=== PATIENT | male | born 1990 | race Caucasian/White ===

== ENCOUNTER 2017-05-20 21:32 | Emergency (ER) | payer SELFPAY ==
[2017-05-20] MEDS ORDERED: ONDANSETRON 4 MG (ODT) TAB ONE (22:36)
--- NOTE | 2017-05-20 23:34 | EDPHYS ---
Physician Documentation [facility] Name: Gurwinder Garner Age: 26 yrs Sex: Male : 1990 Arrival Date: 05/20/2017 Time: 21:36 Bed 17 Private MD: ED Physician Addy Elizondo HPI: 05/20 22:15 This 26 yrs old Male presents to ER via Ambulatory with complaints of Flu cp Symptoms. 22:15 The patient presents to the emergency department with nausea, that is mild, vomiting, 4 cp times today, abdominal pain, of the right upper quadrant and left lower quadrant. Onset: The symptoms/episode began/occurred today. Possible causes: unknown. Associated signs and symptoms: Pertinent positives: fever, general back pain, Pertinent negatives: constipation, diarrhea, GI bleeding. Severity of symptoms: in the emergency department the symptoms are unchanged despite home interventions. Historical: - Allergies: 21:55 No Known Allergies; aa1 - Home Meds: 21:55 None [Active]; aa1 - PMHx: 21:55 None; aa1 - PSHx: 21:55 None; aa1 - Immunization history:: Flu vaccine is not up to date. - Social history:: Smoking status: Patient/guardian denies using tobacco. ROS: 22:20 Constitutional: Positive for body aches, Negative for chills, fever, poor PO intake. cp 22:20 Eyes: Negative for injury, pain, redness, and discharge. cp 22:20 ENT: Negative for drainage from ear(s), ear pain, sore throat, difficulty swallowing, difficulty handling secretions. 22:20 Cardiovascular: Negative for chest pain, edema, palpitations. 22:20 Respiratory: Negative for cough, shortness of breath, wheezing. 22:20 Abdomen/GI: Positive for abdominal pain, nausea, vomiting, Negative for diarrhea, constipation, black/tarry stool, rectal bleeding. 22:20 Back: Positive for generalized pain, Negative for injury or acute deformity, decreased range of motion. 22:20 : Negative for urinary symptoms, testicular pain 22:20 Skin: Negative for cellulitis, rash. 22:20 Neuro: Negative for altered mental status, dizziness, headache, numbness, weakness. 22:20 All other systems are negative. Exam: 22:25 Constitutional: The patient appears in no acute distress, alert, awake, non-toxic, well cp developed, well nourished. 22:25 Head/Face: Normocephalic, atraumatic. cp 22:25 Eyes: Periorbital structures: appear normal, Pupils: equal, round, and reactive to cp light and accomodation, Extraocular movements: intact throughout, Conjunctiva: normal, no exudate, no injection, Sclera: no appreciated abnormality, Lids and lashes: appear normal, bilaterally. 22:25 ENT: External ear(s): are unremarkable, Ear canal(s): are normal, clear, TM's: dullness, bilaterally, Nose: nasal congestion, scant rhinorrhea, Mouth: Lips: moist, Oral mucosa: moist, Posterior pharynx: is normal, airway is patent, no erythema, no exudate, Voice: is normal. 22:25 Neck: ROM/movement: is normal, is supple, without pain, no range of motions limitations, no meningismus, no nuchal rigidity, Lymph nodes: no appreciated lymphadenopathy. 22:25 Chest/axilla: Inspection: normal, Palpation: is normal, no crepitus, no tenderness. 22:25 Cardiovascular: Rate: tachycardic, Rhythm: regular. 22:25 Respiratory: the patient does not display signs of respiratory distress, Respirations: normal, no use of accessory muscles, no retractions, no splinting, no tachypnea, labored breathing, is not present, Breath sounds: are clear throughout, no decreased breath sounds, no stridor, no wheezing. 22:25 Abdomen/GI: Inspection: abdomen appears normal, Bowel sounds: active, all quadrants, Palpation: soft, in all quadrants, mild abdominal tenderness, in the right upper quadrant and left lower quadrant, rebound tenderness, is not appreciated, voluntary guarding, is not appreciated, involuntary guarding, is not appreciated. 22:25 Back: pain, that is mild, ROM is normal, CVA tenderness, is absent. 22:25 Skin: cellulitis, is not appreciated, no rash present. 22:25 Neuro: Orientation: to person, place \T\ time. Mentation: is normal, Cerebellar function: is grossly normal, Motor: moves all fours, strength is normal, Sensation: no obvious gross deficits. Vital Signs: 21:42 BP 148 / 99; Pulse 114; Resp 18; Temp 100.1(O); Pulse Ox 98% on R/A; Weight 83.91 kg; aa1 Height 5 ft. 8 in. (172.72 cm); Pain 9/10; 22:39 BP 108 / 81; Pulse 109; Resp 17 S; Pulse Ox 99% on R/A; Pain 9/10; jd3 23:59 BP 137 / 92; Pulse 102; Resp 17 S; Pulse Ox 97% on R/A; jd3 21:42 Body Mass Index 28.13 (83.91 kg, 172.72 cm) aa1 MDM: 21:44 Patient medically screened. cp 22:30 Differential diagnosis: gastritis, cholecystitis, pancreatitis, appendicitis, viral cp gastroenteritis, gastroenteritis, UTI, influenza. 23:32 Data reviewed: vital signs, nurses notes, lab test result(s). cp 23:32 Counseling: I had a detailed discussion with the patient and/or guardian regarding: the cp historical points, exam findings, and any diagnostic results supporting the discharge/admit diagnosis, lab results, to return to the emergency department if symptoms worsen or persist or if there are any questions or concerns that arise at home. Response to treatment: the patient's symptoms have mildly improved after treatment, VSS. No episodes of vomiting observed in ED and patient tolerating po. Will discharge to home for continued monitoring. 05/20 22:10 Order name: Influenza Screen (a \T\ B); Complete Time: 23:14 cp 05/20 23:14 Interpretation: Reviewed. cp 05/20 23:14 Order name: PO challenge; Complete Time: 23:41 cp Administered Medications: 22:23 Drug: Zofran 4 mg Route: PO; jd3 23:47 Follow up: Response: No adverse reaction jd3 23:47 Drug: Ibuprofen 800 mg Route: PO; jd3 23:58 Follow up: Response: No adverse reaction jd3 Disposition: 05/20/17 23:34 Discharged to Home. Impression: Nausea and vomiting. - Condition is Stable. - Discharge Instructions: Nausea and Vomiting. - Prescriptions for Zofran 4 mg Oral Tablet - take 1 tablet by ORAL route every 12 hours As needed; 20 tablet. - Medication Reconciliation Form, Thank You Letter, Antibiotic Education, Prescription Opioid Use form. - Follow up: Private Physician; When: 1 - 2 days; Reason: Recheck today's complaints. - Problem is new. - Symptoms have improved. Addendum: 05/23/2017 07:16 Co-signature as Attending Physician, Addy Elizondo MD I agree with the assessment and c campuzano plan of care. Signatures: Dispatcher [employer] Kemi Urbina, RN RN aa1 Addy Elizondo MD MD cha Page, Corey, PA PA cp Davies, Jonathon RN RN jd3
--- NOTE | 2017-05-20 23:34 | ER ---
Nurse's Notes [facility] Name: Gurwinder Garner Age: 26 yrs Sex: Male : 1990 Arrival Date: 05/20/2017 Time: 21:36 Bed 17 Private MD: Diagnosis: Nausea and vomiting Presentation: 05/20 21:42 Presenting complaint: Patient states: generalized back pain and body aches since last aa1 night and began vomiting today. Transition of care: patient was not received from another setting of care. Onset of symptoms was May 19, 2017. Care prior to arrival: None. 21:42 Method Of Arrival: Ambulatory aa1 21:42 Acuity: ALIRIO 3 aa1 Triage Assessment: 21:42 General: Appears in no apparent distress. comfortable, Behavior is calm, cooperative, aa1 appropriate for age. Historical: - Allergies: 21:55 No Known Allergies; aa1 - Home Meds: 21:55 None [Active]; aa1 - PMHx: 21:55 None; aa1 - PSHx: 21:55 None; aa1 - Immunization history:: Flu vaccine is not up to date. - Social history:: Smoking status: Patient/guardian denies using tobacco. Screenin:40 Abuse screen: Denies threats or abuse. Nutritional screening: No deficits noted. jd3 Tuberculosis screening: No symptoms or risk factors identified. Fall Risk None identified. Assessment: 21:50 General: Appears in no apparent distress. uncomfortable, Behavior is calm, cooperative, jd3 appropriate for age. Pain: Complains of pain in back Quality of pain is described as aching, Pain began 1 day ago. Neuro: Level of Consciousness is awake, alert, obeys commands, Oriented to person, place, time, situation. Cardiovascular: Heart tones S1 S2 present Capillary refill < 3 seconds Patient's skin is warm and dry. Respiratory: Airway is patent Respiratory effort is even, unlabored, Respiratory pattern is regular, symmetrical, Breath sounds are clear bilaterally. GI: Abdomen is round Bowel sounds present X 4 quads. Abd is soft and non tender X 4 quads. : No signs and/or symptoms were reported regarding the genitourinary system. EENT: No signs and/or symptoms were reported regarding the EENT system. Derm: Skin is intact, Skin is dry, Skin is normal, Skin temperature is warm. Musculoskeletal: Circulation, motion, and sensation intact. Range of motion: intact in all extremities. 22:40 Reassessment: Patient appears in no apparent distress at this time. No changes from jd3 previously documented assessment. Patient and/or family updated on plan of care and expected duration. Pain level reassessed. Patient is alert, oriented x 3, equal unlabored respirations, skin warm/dry/pink. Vital Signs: 21:42 BP 148 / 99; Pulse 114; Resp 18; Temp 100.1(O); Pulse Ox 98% on R/A; Weight 83.91 kg; aa1 Height 5 ft. 8 in. (172.72 cm); Pain 9/10; 22:39 BP 108 / 81; Pulse 109; Resp 17 S; Pulse Ox 99% on R/A; Pain 9/10; jd3 23:59 BP 137 / 92; Pulse 102; Resp 17 S; Pulse Ox 97% on R/A; jd3 21:42 Body Mass Index 28.13 (83.91 kg, 172.72 cm) aa1 ED Course: 21:36 Patient arrived in ED. al2 21:42 Arm band placed on right wrist. Patient placed in an exam room, on a stretcher. aa1 21:43 Addy Mac PA is PHCP. cp 21:43 Addy Elizondo MD is Attending Physician. cp 21:44 Yeison Gay, BRAULIO is Primary Nurse. jd3 21:53 Triage completed. aa1 23:57 Patient has correct armband on for positive identification. jd3 23:57 No provider procedures requiring assistance completed. Patient did not have IV access jd3 during this emergency room visit. Administered Medications: 22:23 Drug: Zofran 4 mg Route: PO; jd3 23:47 Follow up: Response: No adverse reaction jd3 23:47 Drug: Ibuprofen 800 mg Route: PO; jd3 23:58 Follow up: Response: No adverse reaction jd3 Outcome: 23:34 Discharge ordered by . cp 23:57 Discharged to home ambulatory, with family. jd3 23:57 Condition: stable 23:57 Discharge instructions given to patient, family, Instructed on discharge instructions, follow up and referral plans. medication usage, Demonstrated understanding of instructions, follow-up care, medications, Prescriptions given X 1. 23:59 Patient left the ED. jd3 Signatures: Kemi Sellers RN RN aa1 Addy Mac PA PA cp Davies, Jonathon, RN RN jd3 Elda Rahman2 Corrections: (The following items were deleted from the chart) 23:58 23:57 Discharge instructions given to patient, family, Instructed on discharge jd3 instructions, follow up and referral plans. medication usage, Demonstrated understanding of instructions, follow-up care, medications, Prescriptions given X 2, jd3
[2017-05-21] MEDS ORDERED: IBUPROFEN 400 MG TAB ONE (00:03)
== END 2017-05-20 23:59 | disposition home or self-care (01) ==
LOC: ER 21:32
DX: R11.2 Nausea with vomiting, unspecified (principal); R50.9 Fever, unspecified
CPT/HCPCS: 87804; 99283

== ENCOUNTER 2018-04-23 21:11 | Emergency (ER) | payer SELFPAY ==
--- NOTE | 2018-04-24 00:30 | ER ---
Nurse's Notes [facility] Name: Gurwinder Garner Age: 27 yrs Sex: Male : 1990 Arrival Date: 04/23/2018 Time: 21:16 Bed 23 Private MD: Diagnosis: Cough;Vomiting;Diarrhea, unspecified Presentation: 04/23 21:25 Presenting complaint: Patient states: Chills, body aches, cough, vomiting, diarrhea la1 that started on Tuesday. Transition of care: patient was not received from another setting of care. Onset of symptoms was April 23, 2018. Risk Assessment: Do you want to hurt yourself or someone else? Patient reports no desire to harm self or others. Initial Sepsis Screen: Does the patient meet any 2 criteria? No. Patient's initial sepsis screen is negative. Does the patient have a suspected source of infection? No. Patient's initial sepsis screen is negative. Care prior to arrival: None. 21:25 Method Of Arrival: Ambulatory la1 21:25 Acuity: ALIRIO 3 la1 Triage Assessment: 04/24 00:42 General: Behavior is. ca1 Historical: - Allergies: 04/23 21:26 No Known Allergies; la1 - PMHx: 21:26 None; la1 - Immunization history:: Adult Immunizations up to date. - Social history:: Smoking status: Patient/guardian denies using tobacco. - Ebola Screening: : No symptoms or risks identified at this time. Screenin:30 Abuse screen: Denies threats or abuse. Denies injuries from another. Nutritional ca1 screening: No deficits noted. Tuberculosis screening: No symptoms or risk factors identified. Fall Risk None identified. Assessment: 21:30 General: Appears in no apparent distress. uncomfortable, ill. Pain: Complains of pain ca1 in epigastric area Pain currently is 5 out of 10 on a pain scale. Pain began 2-3 days ago. Neuro: Level of Consciousness is awake, alert, obeys commands, Oriented to person, place, time, situation. Cardiovascular: Heart tones S1 S2 present Capillary refill < 3 seconds Patient's skin is warm and dry. Respiratory: Reports cough that is productive, since past week. Airway is patent Respiratory effort is even, unlabored, Respiratory pattern is regular, symmetrical, Breath sounds are coarse bilaterally. in right posterior middle lobe. GI: Abdomen is flat, non-distended, Bowel sounds present X 4 quads. Abd is soft X 4 quads Abdomen is tender to palpation in epigastric area Reports nausea, vomiting. : No signs and/or symptoms were reported regarding the genitourinary system. EENT: Nares with drainage noted Throat is pink Reports nasal congestion. Derm: Skin is intact, is healthy with good turgor, Skin is pink, warm \T\ dry. Musculoskeletal: Circulation, motion, and sensation intact. Capillary refill < 3 seconds. 23:13 Reassessment: Patient appears in no apparent distress at this time. Patient and/or ca1 family updated on plan of care and expected duration. Pain level reassessed. Patient is alert, oriented x 3, equal unlabored respirations, skin warm/dry/pink. 04/24 00:30 Reassessment: Patient appears in no apparent distress at this time. Patient and/or ca1 family updated on plan of care and expected duration. Pain level reassessed. Patient is alert, oriented x 3, equal unlabored respirations, skin warm/dry/pink. Vital Signs: 04/23 21:26 BP 136 / 80; Pulse 98; Resp 18; Temp 99.8; Pulse Ox 100% on R/A; Weight 79.38 kg; la1 Height 5 ft. 8 in. (172.72 cm); 23:13 BP 145 / 91; Pulse 80; Resp 19; Pulse Ox 95% on R/A; ca1 04/24 00:30 BP 135 / 85; Pulse 85; Resp 19; Pulse Ox 100% on R/A; ca1 04/23 21:26 Body Mass Index 26.61 (79.38 kg, 172.72 cm) la1 ED Course: 04/23 21:16 Patient arrived in ED. am2 21:26 Triage completed. la1 21:27 Arm band placed on left wrist. la1 21:30 Patient has correct armband on for positive identification. Bed in low position. Call ca1 light in reach. Side rails up X 1. Pulse ox on. NIBP on. Warm blanket given. 21:32 Addy Mac PA is PHCP. cp 21:32 Addy Elizondo MD is Attending Physician. cp 21:51 Brooke Seth, BRAULIO is Primary Nurse. ca1 22:31 XRAY Chest Pa And Lat (2 Views) In Process Unspecified. EDMS 22:59 Influenza Screen (a \T\ B) Sent. ca1 22:59 Strep Sent. ca1 22:59 Influenza Screen (A Sent. ca1 23:00 Flu Sent. ca1 23:00 Strep Sent. ca1 04/24 00:41 No provider procedures requiring assistance completed. Patient did not have IV access ca1 during this emergency room visit. Administered Medications: No medications were administered Outcome: 00:29 Discharge ordered by . david 00:41 Discharged to home ambulatory. ca1 00:41 Condition: stable 00:41 Discharge instructions given to patient, Instructed on discharge instructions, follow up and referral plans. medication usage, Demonstrated understanding of instructions, follow-up care, medications, Prescriptions given X 2. 00:44 Patient left the ED. ca1 Signatures: Dispatcher [employer] EDMS Mc Casillas, RN RN la1 Addy Mac PA PA cp Moreno, Amanda am2 Brooke Seth RN RN ca1
--- NOTE | 2018-04-24 00:30 | EDPHYS ---
Physician Documentation [facility] Name: Gurwinder Garner Age: 27 yrs Sex: Male : 1990 Arrival Date: 04/23/2018 Time: 21:16 Bed 23 Private MD: ED Physician Addy Elizondo HPI: 04/23 22:05 This 27 yrs old Male presents to ER via Ambulatory with complaints of Flu cp Symptoms, Fever. Historical: - Allergies: 21:26 No Known Allergies; la1 - PMHx: 21:26 None; la1 - Immunization history:: Adult Immunizations up to date. - Social history:: Smoking status: Patient/guardian denies using tobacco. - Ebola Screening: : No symptoms or risks identified at this time. ROS: 22:10 Constitutional: Positive for body aches, chills, Negative for fever, poor PO intake. cp 22:10 Eyes: Negative for injury, pain, redness, and discharge. cp 22:10 ENT: Positive for sore throat, Negative for drainage from ear(s), ear pain, difficulty swallowing, difficulty handling secretions. 22:10 Cardiovascular: Negative for chest pain. 22:10 Respiratory: Positive for cough, Negative for wheezing. 22:10 Abdomen/GI: Positive for nausea, vomiting, and diarrhea, Negative for constipation. 22:10 Skin: Negative for cellulitis, rash. 22:10 Neuro: Negative for altered mental status, headache, weakness. 22:10 All other systems are negative. Exam: 22:20 Constitutional: The patient appears in no acute distress, alert, awake, non-toxic, well cp developed, well nourished. 22:20 Head/Face: Normocephalic, atraumatic. cp 22:20 Eyes: Periorbital structures: appear normal, Conjunctiva: normal, no exudate, no injection, Lids and lashes: appear normal, bilaterally. 22:20 ENT: External ear(s): are unremarkable, Ear canal(s): are normal, clear, TM's: bulging, is not appreciated, bilaterally, dullness, bilaterally, erythema, is not appreciated, bilaterally, Nose: is normal, Mouth: Lips: moist, Oral mucosa: moist, Posterior pharynx: Airway: no evidence of obstruction, patent, Tonsils: with erythema, no enlargement, no exudate, erythema, that is mild, exudate, is not appreciated. 22:20 Neck: ROM/movement: is normal, is supple, without pain, no range of motions limitations, no meningismus, no nuchal rigidity. 22:20 Chest/axilla: Inspection: normal, Palpation: is normal, no crepitus, no tenderness. 22:20 Cardiovascular: Rate: normal, Rhythm: regular. 22:20 Respiratory: the patient does not display signs of respiratory distress, Respirations: normal, no use of accessory muscles, no retractions, no splinting, no tachypnea, labored breathing, is not present, Breath sounds: are clear throughout, no decreased breath sounds, no stridor, no wheezing. 22:20 Abdomen/GI: Inspection: abdomen appears normal, Bowel sounds: active, all quadrants, Palpation: abdomen is soft and non-tender, in all quadrants, rebound tenderness, is not appreciated, voluntary guarding, is not appreciated, involuntary guarding, is not appreciated. 22:20 Skin: cellulitis, is not appreciated, no rash present. Vital Signs: 21:26 BP 136 / 80; Pulse 98; Resp 18; Temp 99.8; Pulse Ox 100% on R/A; Weight 79.38 kg; la1 Height 5 ft. 8 in. (172.72 cm); 23:13 BP 145 / 91; Pulse 80; Resp 19; Pulse Ox 95% on R/A; ca1 04/24 00:30 BP 135 / 85; Pulse 85; Resp 19; Pulse Ox 100% on R/A; ca1 04/23 21:26 Body Mass Index 26.61 (79.38 kg, 172.72 cm) la1 MDM: 04/23 21:32 Patient medically screened. cp / 00:00 Differential diagnosis: bronchitis, pneumonia gastroenteritis, meningitis. cp 00:28 Data reviewed: vital signs, nurses notes, lab test result(s), radiologic studies, plain cp films, and as a result, I will discharge patient. 00:28 Test interpretation: by ED physician or midlevel provider: plain radiologic studies. cp Counseling: I had a detailed discussion with the patient and/or guardian regarding: the historical points, exam findings, and any diagnostic results supporting the discharge/admit diagnosis, lab results, radiology results, to return to the emergency department if symptoms worsen or persist or if there are any questions or concerns that arise at home. 04/23 21:59 Order name: Influenza Screen (a \T\ B) 04/23 21:59 Order name: Strep; Complete Time: 00:21 cp 04/24 00:21 Interpretation: Reviewed. 04/23 21:59 Order name: Influenza Screen (A ; Complete Time: 00:21 EDPR 04/24 00:21 Interpretation: Reviewed. 04/23 21:59 Order name: Flu ca1 04/23 21:59 Order name: Strep ca1 04/24 00:20 Order name: Throat Culture [facility] 04/23 21:59 Order name: XRAY Chest Pa And Lat (2 Views) 04/23 23:04 Order name: PO challenge; Complete Time: 23:11 cp Administered Medications: No medications were administered Disposition: 04/24/18 00:29 Discharged to Home. Impression: Cough, Vomiting, Diarrhea, unspecified. - Condition is Stable. - Discharge Instructions: Food Choices to Help Relieve Diarrhea, Adult, Diarrhea, Adult, Cough, Adult, Vomiting, Adult, Form - Excuse from Work, School, or Physical Activity. - Prescriptions for Zofran 4 mg Oral Tablet - take 1 tablet by ORAL route every 12 hours As needed; 20 tablet. Tessalon Perles 100 mg Oral Capsule - take 1 capsule by ORAL route every 8 hours As needed; 15 capsule. - Medication Reconciliation Form, Thank You Letter, Antibiotic Education, Prescription Opioid Use, Work release form form. - Follow up: Private Physician; When: 2 - 3 days; Reason: Worsening of condition. - Problem is new. - Symptoms have improved. Addendum: 04/26/2018 11:21 Co-signature as Attending Physician, Addy Elizondo MD I agree with the assessment and c campuzano plan of care. Signatures: Dispatcher [employer] [facility] Addy Elizondo MD MD cha Attema, Lee, RN RN la1 Addy Mac PA PA cp Acob, Cheryl RN RN ca1 Corrections: (The following items were deleted from the chart) 04/23 22:01 21:59 Influenza Screen (A ordered. [facility] 04/24 00:44 00:29 04/24/2018 00:29 Discharged to Home. Impression: Cough; Vomiting; Diarrhea, ca1 unspecified. Condition is Stable. Forms are Medication Reconciliation Form, Thank You Letter, Antibiotic Education, Prescription Opioid Use. Follow up: Private Physician; When: 2 - 3 days; Reason: Worsening of condition. Problem is new. Symptoms have improved. cp
--- NOTE | 2018-04-24 07:48 | RAD REPORT ---
EXAM DESCRIPTION: Joe Falk (2 Views)04/23/2018 10:32 pm CLINICAL HISTORY: Cough COMPARISON: None FINDINGS: The lungs appear clear of acute infiltrate. The heart is normal size IMPRESSION: No acute abnormalities displayed
== END 2018-04-24 00:44 | disposition home or self-care (01) ==
LOC: ER 21:11
DX: R05 Cough (principal); R11.10 Vomiting, unspecified; R19.7 Diarrhea, unspecified; R50.9 Fever, unspecified
CPT/HCPCS: 71046; 87070; 87081; 87804; 99284

== ENCOUNTER 2018-04-25 12:55 | Emergency (ER) | payer BC, SELFPAY ==
[2018-04-25 14:01] LABS: Absolute Lymphocytes (CBC) 1.6 K/uL (0.7-4.9); Absolute Monocytes 0.5 K/uL (0.1-1.3); Absolute Neutrophil 3.9 K/uL (1.8-8.0); Basophils % 0.1 % (0-1.3); Eosinophils % 0.9 % (0-4.4); Hematocrit 40.2 % (39.6-49.0); Lymphocytes % 26.5 % (15.3-44.8); MPV 8.9 fL (7.6-11.3); Monocytes % 8.6 % (3.3-12.3); RBC Red Blood Cell Count 4.81 M/uL (4.33-5.43)
[2018-04-25 14:19] LABS: Albumin 3.8 g/dL (3.4-5.0); Bilirubin Direct 0.1 mg/dL (0-0.2); Bilirubin Total 0.3 mg/dL (0.2-1.0); Potassium 3.8 mmol/L (3.5-5.1); Protein, Total 7.7 g/dL (6.4-8.2)
[2018-04-25] MEDS ORDERED: NA CHLORIDE 0.9% 1,000 ML ONE (14:23)
--- NOTE | 2018-04-25 15:40 | ER ---
Nurse's Notes [facility] Name: Gurwinder Garner Age: 27 yrs Sex: Male : 1990 Arrival Date: 04/25/2018 Time: 12:57 Bed 27 Private MD: Diagnosis: Fever presenting with conditions classified elsewhere;Acute upper respiratory infection, unspecified Presentation: 04/25 13:07 Presenting complaint: Patient states: I was seen here Tuesday, I had a tooth pulled 2 ch months ago, I have been on two rounds of antibiotics. I called my Dentist and they said to come in here, the infection is in my blood stream and I need IV antibiotics. I cant eat and dont feel well. I am having diarrhea and body aches. Transition of care: patient was not received from another setting of care. Onset of symptoms was February 2018. Risk Assessment: Do you want to hurt yourself or someone else? Patient reports no desire to harm self or others. Initial Sepsis Screen: Does the patient meet any 2 criteria? No. Patient's initial sepsis screen is negative. Does the patient have a suspected source of infection? No. Patient's initial sepsis screen is negative. Care prior to arrival: None. 13:07 Method Of Arrival: Ambulatory 13:07 Acuity: ALIRIO 4 ch Triage Assessment: 13:09 General: Appears in no apparent distress. comfortable, Behavior is calm, cooperative, ch appropriate for age. Pain: Complains of pain in nose and throat Pain currently is 3 out of 10 on a pain scale. Historical: - Allergies: 13:09 No Known Allergies; ch - Home Meds: 13:09 antibiotics [Active]; ch - PMHx: 13:09 None; - PSHx: 13:09 circumcision; - Immunization history:: Adult Immunizations up to date, Flu vaccine is not up to date. - Social history:: Smoking status: Patient/guardian denies using tobacco, Patient uses alcohol, but reports only rare drinking. Patient/guardian denies using street drugs. - Ebola Screening: : Patient negative for fever greater than or equal to 101.5 degrees Fahrenheit, and additional compatible Ebola Virus Disease symptoms Patient denies exposure to infectious person Patient denies travel to an Ebola-affected area in the 21 days before illness onset No symptoms or risks identified at this time. Screenin:15 Abuse screen: Denies threats or abuse. Denies injuries from another. Nutritional ca1 screening: No deficits noted. Tuberculosis screening: No symptoms or risk factors identified. Fall Risk None identified. Assessment: 13:15 General: Appears in no apparent distress. comfortable, Behavior is calm, cooperative, ca1 appropriate for age. Pain: Complains of pain in neck and nose and throat Pain does not radiate. Pain currently is 3 out of 10 on a pain scale. Pain began 2-3 days ago. Neuro: Level of Consciousness is awake, alert, obeys commands, Oriented to person, place, time, situation. Cardiovascular: Heart tones S1 S2 present Capillary refill < 3 seconds Patient's skin is warm and dry. Respiratory: Reports cough that is productive, Airway is patent Respiratory effort is even, unlabored, Respiratory pattern is regular, symmetrical, Breath sounds are clear bilaterally. GI: No signs and/or symptoms were reported involving the gastrointestinal system. : No signs and/or symptoms were reported regarding the genitourinary system. EENT: Throat is pink Reports nasal congestion. Derm: Skin is intact, is healthy with good turgor, Skin is pink, warm \T\ dry. Musculoskeletal: Circulation, motion, and sensation intact. Capillary refill < 3 seconds. 14:10 Reassessment: Patient appears in no apparent distress at this time. Patient and/or ca1 family updated on plan of care and expected duration. Pain level reassessed. Patient is alert, oriented x 3, equal unlabored respirations, skin warm/dry/pink. 15:05 Reassessment: Patient appears in no apparent distress at this time. Patient and/or ca1 family updated on plan of care and expected duration. Pain level reassessed. Patient is alert, oriented x 3, equal unlabored respirations, skin warm/dry/pink. 15:50 Reassessment: Patient appears in no apparent distress at this time. Patient and/or ca1 family updated on plan of care and expected duration. Pain level reassessed. Patient is alert, oriented x 3, equal unlabored respirations, skin warm/dry/pink. Vital Signs: 13:09 BP 147 / 94; Pulse 89; Resp 16; Temp 99.4; Pulse Ox 99% on R/A; Weight 79.38 kg; Height ch 5 ft. 8 in. (172.72 cm); Pain 3/10; 14:00 BP 104 / 85; Pulse 85; Resp 19; Pulse Ox 99% on R/A; ca1 14:56 BP 114 / 64; Pulse 66; Resp 19; Pulse Ox 96% on R/A; ca1 15:05 BP 108 / 67; Pulse 64; Resp 18; Pulse Ox 96% on R/A; ca1 15:50 BP 110 / 65; Pulse 71; Resp 19; Pulse Ox 100% on R/A; ca1 13:09 Body Mass Index 26.61 (79.38 kg, 172.72 cm) ED Course: 12:57 Patient arrived in ED. as 13:08 Triage completed. 13:09 Arm band placed on left wrist. Patient placed in an exam room, on a stretcher. 13:15 Brooke Seth RN is Primary Nurse. [facility] 13:15 Norman Kennedy MD is Attending Physician. 13:15 Patient has correct armband on for positive identification. Bed in low position. Call ca1 light in reach. Side rails up X 1. Pulse ox on. NIBP on. Pillow given. 13:52 Initial lab(s) drawn, by ut, sent to lab. Inserted saline lock: 20 gauge in right ls4 antecubital area, using aseptic technique. Blood collected. 15:39 Amilcar Gordon DDS is Referral Physician. 15:40 EKG done, by technician terminal and repeater. reviewed by Norman Kenneyd MD. [facility] 16:05 No provider procedures requiring assistance completed. IV discontinued, intact, ca1 bleeding controlled, No redness/swelling at site. Pressure dressing applied. Administered Medications: 14:00 Drug: NS 0.9% 1000 ml Route: IV; Rate: 1 bolus; Site: right antecubital; ca1 15:00 Follow up: IV Status: Completed infusion ca1 Outcome: 15:40 Discharge ordered by . 16:05 Patient left the ED. ca1 16:05 Discharged to home ambulatory. [facility] 16:05 Condition: stable 16:05 Discharge instructions given to patient, Instructed on discharge instructions, follow up and referral plans. Demonstrated understanding of instructions, follow-up care. Signatures: Dior Leal, RN RN Margarita Hernandez Gregory, MD MD Tika Tripathi [facility] Wanda Sousa RN RN 4 Acob, Brooke, RN RN ca1
--- NOTE | 2018-04-25 15:41 | EDPHYS ---
Physician Documentation [facility] Name: Gurwinder Garner Age: 27 yrs Sex: Male : 1990 Arrival Date: 04/25/2018 Time: 12:57 Bed 27 Private MD: ED Physician Norman Kennedy HPI: 04/25 15:32 This 27 yrs old Male presents to ER via Ambulatory with complaints of fever gs uri Mouth Problem. 15:32 Onset: The symptoms/episode began/occurred 1 week(s) ago. Associated signs and gs symptoms: Pertinent positives: chills, cough, diarrhea. Severity of symptoms: At their worst the symptoms were moderate in the emergency department the symptoms are unchanged. The patient has been recently seen at the [facility] Emergency Department, this week. has upper resp flu like symptoms, concerned that may have systemic infection as has been on abx for a few weeks off and on after a tooth extraction . Historical: - Allergies: 13:09 No Known Allergies; ch - Home Meds: 13:09 antibiotics [Active]; ch - PMHx: 13:09 None; ch - PSHx: 13:09 circumcision; ch - Immunization history:: Adult Immunizations up to date, Flu vaccine is not up to date. - Social history:: Smoking status: Patient/guardian denies using tobacco, Patient uses alcohol, but reports only rare drinking. Patient/guardian denies using street drugs. - Ebola Screening: : Patient negative for fever greater than or equal to 101.5 degrees Fahrenheit, and additional compatible Ebola Virus Disease symptoms Patient denies exposure to infectious person Patient denies travel to an Ebola-affected area in the 21 days before illness onset No symptoms or risks identified at this time. ROS: 15:32 All other systems are negative. gs Exam: 15:32 Head/Face: Normocephalic, atraumatic. Eyes: Pupils equal round and reactive to light, gs extra-ocular motions intact. Lids and lashes normal. Conjunctiva and sclera are non-icteric and not injected. Cornea within normal limits. Periorbital areas with no swelling, redness, or edema. Neck: Trachea midline, no thyromegaly or masses palpated, and no cervical lymphadenopathy. Supple, full range of motion without nuchal rigidity, or vertebral point tenderness. No Meningismus. Chest/axilla: Normal chest wall appearance and motion. Nontender with no deformity. No lesions are appreciated. Cardiovascular: Regular rate and rhythm with a normal S1 and S2. No gallops, murmurs, or rubs. Normal PMI, no JVD. No pulse deficits. Respiratory: Lungs have equal breath sounds bilaterally, clear to auscultation and percussion. No rales, rhonchi or wheezes noted. No increased work of breathing, no retractions or nasal flaring. Abdomen/GI: Soft, non-tender, with normal bowel sounds. No distension or tympany. No guarding or rebound. No evidence of tenderness throughout. Back: No spinal tenderness. No costovertebral tenderness. Full range of motion. Skin: Warm, dry with normal turgor. Normal color with no rashes, no lesions, and no evidence of cellulitis. MS/ Extremity: Pulses equal, no cyanosis. Neurovascular intact. Full, normal range of motion. Neuro: Awake and alert, GCS 15, oriented to person, place, time, and situation. Cranial nerves II-XII grossly intact. Motor strength 5/5 in all extremities. Sensory grossly intact. Cerebellar exam normal. Normal gait. 15:32 Constitutional: The patient appears alert, awake. 15:32 ENT: Dental exam: no swelling abscess small tag of gun hanging from extraction site extraction site closed. Vital Signs: 13:09 BP 147 / 94; Pulse 89; Resp 16; Temp 99.4; Pulse Ox 99% on R/A; Weight 79.38 kg; Height ch 5 ft. 8 in. (172.72 cm); Pain 3/10; 14:00 BP 104 / 85; Pulse 85; Resp 19; Pulse Ox 99% on R/A; ca1 14:56 BP 114 / 64; Pulse 66; Resp 19; Pulse Ox 96% on R/A; ca1 15:05 BP 108 / 67; Pulse 64; Resp 18; Pulse Ox 96% on R/A; ca1 15:50 BP 110 / 65; Pulse 71; Resp 19; Pulse Ox 100% on R/A; ca1 13:09 Body Mass Index 26.61 (79.38 kg, 172.72 cm) [facility]: 13:29 Patient medically screened. 15:32 Differential diagnosis: viral Infection, bacterial infection, URI. Data reviewed: vital gs signs, nurses notes, old medical records, lab test result(s), EKG, radiologic studies. Counseling: I had a detailed discussion with the patient and/or guardian regarding: the historical points, exam findings, and any diagnostic results supporting the discharge/admit diagnosis, lab results, radiology results, the need for outpatient follow up, an oral maxilofacial specialist. Response to treatment: the patient's symptoms have markedly improved after treatment, and as a result, I will discharge patient. 04/25 13:31 Order name: Basic Metabolic Panel; Complete Time: 15:08 04/25 13:31 Order name: Blood Culture Adult (2) 04/25 13:31 Order name: CBC with Diff; Complete Time: 14:14 04/25 13:31 Order name: Lactate; Complete Time: 15:08 04/25 13:31 Order name: LFT's; Complete Time: 15:08 04/25 13:31 Order name: Procalcitonin; Complete Time: 15:32 04/25 13:31 Order name: Accucheck; Complete Time: 14:30 04/25 13:31 Order name: Cardiac monitoring; Complete Time: 13:51 04/25 13:31 Order name: EKG - Nurse/Tech; Complete Time: 14:46 04/25 13:31 Order name: IV Saline Lock - Large Bore; Complete Time: 13:52 04/25 13:31 Order name: Labs collected and sent; Complete Time: 13:52 04/25 14:31 Order name: Glucose, Ancillary Testing [facility] 04/25 14:59 Order name: Urine Dipstick--Ancillary (enter results) 04/25 13:31 Order name: O2 Per Protocol; Complete Time: 14:11 04/25 13:31 Order name: O2 Sat Monitoring; Complete Time: 14:11 04/25 13:31 Order name: Urine Dipstick-Ancillary (obtain specimen); Complete Time: 14:48 Administered Medications: 14:00 Drug: NS 0.9% 1000 ml Route: IV; Rate: 1 bolus; Site: right antecubital; ca1 15:00 Follow up: IV Status: Completed infusion ca1 Disposition: 04/25/18 15:40 Discharged to Home. Impression: Fever presenting with conditions classified elsewhere, Acute upper respiratory infection, unspecified. - Condition is Stable. - Discharge Instructions: Upper Respiratory Infection, Adult. - Medication Reconciliation Form, Thank You Letter, Antibiotic Education, Prescription Opioid Use form. - Follow up: Amilcar Gordon DDS; When: 2 - 3 days; Reason: Re-evaluation by your physician. Signatures: Dispatcher [employer] EDDior Wilson RN RN ch Norman Kennedy MD MD gs Acob, BRAULIO Cox RN ca1 Corrections: (The following items were deleted from the chart) 16:05 15:40 04/25/2018 15:40 Discharged to Home. Impression: Fever presenting with conditions ca1 classified elsewhere; Acute upper respiratory infection, unspecified. Condition is Stable. Forms are Medication Reconciliation Form, Thank You Letter, Antibiotic Education, Prescription Opioid Use. Follow up: Amilcar Gordon; When: 2 - 3 days; Reason: Re-evaluation by your physician. gs
[2018-04-25 19:49] LABS: Urine Blood NEGATIVE (NEG); Urine Glucose NEGATIVE (NEG); Urine Protein TRACE (NEG)
--- NOTE | 2018-04-26 06:06 | EKG ---
Test Date: 2018-04-25 Test Time: 14:38:26 Epic Interface Analyst: MARKELL MEASUREMENT RESULTS: Intervals: Rate: 70 CA: 96 QRSD: 112 QT: 390 QTc: 421 [place]: P: 24 CA: 96 QRS: 7 T: 29 INTERPRETIVE STATEMENTS: Normal sinus rhythm Wsncd-[id number]-Hgsau Abnormal ECG No previous ECG available for comparison Electronically Signed On 04-26-18 06:04:27 TE[employer]ER [employer]ESS [employer]IP[employer] by Kody Tavarez
== END 2018-04-25 16:05 | disposition home or self-care (01) ==
LOC: ER 12:55
DX: J06.9 Acute upper respiratory infection, unspecified (principal)
CPT/HCPCS: 36415; 80048; 80076; 81003; 82962; 83605; 84145; 85025; 87040; 93005; 96360; 99284; J7030

== ENCOUNTER 2019-05-07 11:47 | Emergency (ER) | payer BC, SELFPAY ==
--- NOTE | 2019-05-07 13:25 | ER ---
Nurse's Notes [facility] Name: Gurwinder Garner Age: 28 yrs Sex: Male : 1990 Arrival Date: 05/07/2019 Time: 11:49 Bed 25 Private MD: Diagnosis: Acute bronchitis;Diarrhea, unspecified Presentation: 05/06 12:25 Chief complaint: Patient states: vomiting, diarrhea, fever, shortness of breath since dw yesterday afternoon. Coronavirus screen: The patient has NOT traveled to a country currently being monitored by the [facility] within the last 14 days. The patient has NOT had contact with any known and/or suspected case of coronavirus. Ebola Screen: Patient negative for fever greater than or equal to 101.5 degrees Fahrenheit, and additional compatible Ebola Virus Disease symptoms Patient denies exposure to infectious person. Patient denies travel to an Ebola-affected area in the 21 days before illness onset. No symptoms or risks identified at this time. 12:25 Method Of Arrival: Ambulatory dw 12:28 Initial Sepsis Screen: Does the patient meet any 2 criteria? No. Patient's initial dw sepsis screen is negative. Does the patient have a suspected source of infection? No. Patient's initial sepsis screen is negative. Risk Assessment: Do you want to hurt yourself or someone else? Patient reports no desire to harm self or others. 12:28 Acuity: ALIRIO 4 14:01 Onset of symptoms was May 06, 2019. dw Triage Assessment: 12:31 General: Appears in no apparent distress. Behavior is calm, cooperative. Pain: dw Complains of pain in abdomen. EENT: No signs and/or symptoms were reported regarding the EENT system. Neuro: No deficits noted. Cardiovascular: No deficits noted. Respiratory: Breath sounds are clear. GI: Reports lower abdominal pain, upper abdominal pain, diarrhea, vomiting, since yesterday afternoon. 12:31 : No signs and/or symptoms were reported regarding the genitourinary system. Derm: No dw deficits noted. Musculoskeletal: No deficits noted. Historical: - Allergies: 12:30 No Known Allergies; dw - PMHx: 12:31 None; dw - PSHx: 12:31 None; dw - Immunization history:: Adult Immunizations not up to date. - Social history:: Patient/guardian denies using alcohol, Patient/guardian denies using street drugs, The patient lives with family, Smoking status: Patient reports the use of cigarette tobacco products, Patient denies any tobacco usage or history of. - Family history:: not pertinent. Screenin:59 Abuse screen: Denies threats or abuse. Denies injuries from another. Nutritional dw screening: No deficits noted. Tuberculosis screening: No symptoms or risk factors identified. Fall Risk None identified. Vital Signs: 12:25 BP 133 / 89; Pulse 94; Resp 20; Temp 99.8; Pulse Ox 99% ; Weight 83.91 kg; Height 5 ft. dw 7 in. (170.18 cm); Pain 6/10; 13:58 BP 133 / 84; Pulse 91; Resp 20; Temp 101.3; Pulse Ox 97% ; Pain 8/10; dw 14:16 Pain 4/10; dw 12:25 Body Mass Index 28.97 (83.91 kg, 170.18 cm) dw ED Course: 11:49 Patient arrived in ED. ag5 12:16 Francesco Carlson MD is Attending Physician. ma2 12:25 Suly Issa, RN is Primary Nurse. dw 12:29 Triage completed. dw 12:49 Strep Sent. dw 12:49 Flu Sent. dw 13:59 Awaiting: shot time. dw 13:59 No provider procedures requiring assistance completed. Patient did not have IV access dw during this emergency room visit. 13:59 Patient has correct armband on for positive identification. Bed in low position. Call dw light in reach. Side rails up X 1. 14:02 Arm band placed on right wrist. Antipyretics given from triage as ordered by an ER dw provider. Administered Medications: 13:58 Drug: TORadol 60 mg Route: IM; Site: right gluteus; dw 14:16 Follow up: Pain 4/10 Adult dw Outcome: 13:24 Discharge ordered by . maZay 14:00 Discharged to home dw 14:00 Discharged to home ambulatory. 14:00 Condition: good 14:00 Condition: good 14:00 Discharge instructions given to patient, Instructed on discharge instructions, follow up and referral plans. medication usage, Demonstrated understanding of instructions, follow-up care, medications, Prescriptions given X 3. 14:16 Patient left the ED. dw Signatures: Suly Issa RN RN Francesco Arevalo MD MD ma2 Kimmy Ferrer ag5
--- NOTE | 2019-05-07 13:25 | EDPHYS ---
Physician Documentation [facility] Name: Gurwinder aGrner Age: 28 yrs Sex: Male : 1990 Arrival Date: 05/07/2019 Time: 11:49 Bed 25 Private MD: ED Physician Francesco Carlson HPI: 05/06 13:23 This 28 yrs old Male presents to ER via Ambulatory with complaints of Flu ma2 Symptoms. 13:23 The patient or guardian reports cough. Onset: The symptoms/episode began/occurred ma2 gradually, 2 day(s) ago. Severity of symptoms: in the emergency department the symptoms have improved. Associated signs and symptoms: Pertinent negatives: fever, rhinorrhea, sore throat. The patient has not experienced similar symptoms in the past. Historical: - Allergies: 12:30 No Known Allergies; dw - PMHx: 12:31 None; dw - PSHx: 12:31 None; dw - Immunization history:: Adult Immunizations not up to date. - Social history:: Patient/guardian denies using alcohol, Patient/guardian denies using street drugs, The patient lives with family, Smoking status: Patient reports the use of cigarette tobacco products, Patient denies any tobacco usage or history of. - Family history:: not pertinent. ROS: 13:23 Constitutional: Negative for fever, chills, and weight loss. ma2 13:23 All other systems are negative. Exam: 13:23 Constitutional: This is a well developed, well nourished patient who is awake, alert, ma2 and in no acute distress. ENT: Nares patent. No nasal discharge, no septal abnormalities noted. Tympanic membranes are normal and external auditory canals are clear. Oropharynx with no redness, swelling, or masses, exudates, or evidence of obstruction, uvula midline. Mucous membranes moist. Neck: Trachea midline, no thyromegaly or masses palpated, and no cervical lymphadenopathy. Supple, full range of motion without nuchal rigidity, or vertebral point tenderness. No Meningismus. Chest/axilla: Normal chest wall appearance and motion. Nontender with no deformity. No lesions are appreciated. Cardiovascular: Regular rate and rhythm with a normal S1 and S2. No gallops, murmurs, or rubs. Normal PMI, no JVD. No pulse deficits. Respiratory: Lungs have equal breath sounds bilaterally, clear to auscultation and percussion. No rales, rhonchi or wheezes noted. No increased work of breathing, no retractions or nasal flaring. Abdomen/GI: Soft, non-tender, with normal bowel sounds. No distension or tympany. No guarding or rebound. No evidence of tenderness throughout. Neuro: Awake and alert, GCS 15, oriented to person, place, time, and situation. Cranial nerves II-XII grossly intact. Motor strength 5/5 in all extremities. Sensory grossly intact. Cerebellar exam normal. Normal gait. Vital Signs: 12:25 BP 133 / 89; Pulse 94; Resp 20; Temp 99.8; Pulse Ox 99% ; Weight 83.91 kg; Height 5 ft. dw 7 in. (170.18 cm); Pain 6/10; 13:58 BP 133 / 84; Pulse 91; Resp 20; Temp 101.3; Pulse Ox 97% ; Pain 8/10; dw 14:16 Pain 4/10; dw 12:25 Body Mass Index 28.97 (83.91 kg, 170.18 cm) dw MDM: 12:16 Patient medically screened. ma2 13:23 Differential Diagnosis: Bronchitis Influenza Upper Respiratory Infection Sinusitis. ma2 Data reviewed: vital signs, nurses notes. Counseling: I had a detailed discussion with the patient and/or guardian regarding: the historical points, exam findings, and any diagnostic results supporting the discharge/admit diagnosis, the presence of at least one elevated blood pressure reading (>120/80) during this emergency department visit, the need for outpatient follow up. Response to treatment: the patient's symptoms have markedly improved after treatment. 05/06 12:16 Order name: Flu; Complete Time: 13:16 ma2 05/06 12:16 Order name: Strep; Complete Time: 13:16 ma2 05/06 13:13 Order name: Throat Culture EDMS Administered Medications: 13:58 Drug: TORadol 60 mg Route: IM; Site: right gluteus; dw 14:16 Follow up: Pain 4/10 Adult dw Disposition: 05/07/19 13:24 Discharged to Home. Impression: Acute bronchitis, Diarrhea, unspecified. - Condition is Stable. - Discharge Instructions: Food Choices to Help Relieve Diarrhea, Adult, Diarrhea, Adult, Viral Gastroenteritis, Adult. - Prescriptions for Zofran 4 mg Oral Tablet - take 1 tablet by ORAL route every 12 hours As needed; 20 tablet. Zithromax Z- Tang 250 mg Oral Tablet - take 1 tablet by ORAL route as directed for 5 days Day 1 - take two (2) tablets one time. Day 2, 3, 4 , 5 take one (1) tablet once daily.; 6 tablet. Pepcid 20 mg Oral Tablet - take 1 tablet by ORAL route once daily for 10 days; 10 tablet. - Medication Reconciliation Form, Thank You Letter, Antibiotic Education, Prescription Opioid Use form. - Follow up: Private Physician; When: Tomorrow; Reason: Continuance of care. Signatures: Dispatcher [employer] Suly Grover RN RN dw Alzahri, Mohammad, MD MD ma2 Corrections: (The following items were deleted from the chart) 14:16 13:24 05/07/2019 13:24 Discharged to Home. Impression: Acute bronchitis; Diarrhea, dw unspecified. Condition is Stable. Forms are Medication Reconciliation Form, Thank You Letter, Antibiotic Education, Prescription Opioid Use. Follow up: Private Physician; When: Tomorrow; Reason: Continuance of care. ma2
[2019-05-07] MEDS ORDERED: KETOROLAC 30 MG/ML INJ ONE (13:58)
[2019-05-07 14:43] VITALS: BP 133/84; TEMP 101.3; O2SAT 97
== END 2019-05-07 14:16 | disposition home or self-care (01) ==
LOC: ER 11:47
DX: J20.9 Acute bronchitis, unspecified (principal); R19.7 Diarrhea, unspecified; Z72.0 Tobacco use
CPT/HCPCS: 87070; 87081; 87804; 96372; 99283

== ENCOUNTER 2019-10-10 23:33 | Emergency (ER) | payer SELFPAY ==
--- OUTSIDE RECORDS SUMMARY | 2019-10-10 23:35 | XMS REPORT | Summary of Care ---
:1990 Author Organization [facility] Address [address] [id number] Care Team Providers Name Role Phone Pcp, Patient Does Not Have A Primary Care Provider +1-000-00 0-0000 Reason for Visit Reason Comments Lab Results Encounter Details Date Type Department Care Team Description 09/01/2019 Telephone ACCESS CENTER Ellyn Avelar RN Lab Results [address] [phone] [place] [address] Allergies Not on Filedocumented as of this encounter (statuses as of 09/01/2019) Medications Not on filedocumented as of this encounter (statuses as of 09/01/2019) Active Problems Not on filedocumented as of this encounter (statuses as of 09/01/2019) Social History Tobacco Use Types Packs/Day Years Used Date Never Assessed Sex Assigned at Date Recorded Not on file Job Start Date Occupation Industry Not on file Not on file Not on file Travel History Travel Start Travel End No recent travel history available. COVID-19 Exposure Response Date Recorded In the last month, have you been in contact with Yes 08/29/2019 2:59 PM CDT someone who was confirmed or suspected to have Coronavirus / COVID-19? documented as of this encounter Last Filed Vital Signs Not on filedocumented in this encounter Plan of Treatment Health Maintenance Due Date Last Done Comments VARICELLA VACCINES (1 of 2 - 1993 2-dose childhood series) DTaP,Tdap,and Td Vaccines (1 - 12/27/2003 Tdap) Depression Screening 2004 INFLUENZA VACCINE (#1) 2019 HPV VACCINES Aged Out No longer eligib le based on patient's age to complete this topic PNEUMOCOCCAL 0-64 YEARS COMBINED Aged Out No longer eligible based on SERIES patient's age to complete this topic documented as of this encounter Results Not on filedocumented in this encounter
--- OUTSIDE RECORDS SUMMARY | 2019-10-10 23:35 | XMS REPORT | Summary of Care ---
:1990 Author Organization [facility] Address [address] [place] [address] Care Team Providers Name Role Phone Pcp, Patient Does Not Have A Primary Care Provider +1-000-00 0-0000 Reason for Visit Reason Comments Exposure Encounter Details Date Type Department Care Team Description 08/29/2019 Laboratory Only [facility] Family Judi, WILBERTO Zelaya [address] [place], [place] [address] [address] Exposure to Covid-19 [facility], Adc Fam Pob I Virus (Primary Dx) [address] [place] [phone] Allergies Not on Filedocumented as of this encounter (statuses as of 08/29/2019) Medications Not on filedocumented as of this encounter (statuses as of 08/29/2019) Active Problems Not on filedocumented as of this encounter (statuses as of 08/29/2019) Social History Tobacco Use Types Packs/Day Years [...] filedocumented in this encounter Plan of Treatment Name Type Priority Associated Diagnoses Order S chedule COVID-19 (PCR MOLECULAR LAB Routine Exposure to Covid -19 Expected: 08/29/2019, TESTING) Virus Expires: 2020 documented as of this encounter Results Not on filedocumented in this encounter Visit Diagnoses Diagnosis Exposure to Covid-19 Virus - Primary documented in this encounter Additional Health Concerns Infection Onset Date Last Indicated Resolved Time COVID-19 Rule Out 08/29/2019 08/29/2019 documented as of this encounter
--- OUTSIDE RECORDS SUMMARY | 2019-10-10 23:35 | XMS REPORT | Continuity of Care Document ---
:1990 Author Organization [facility] t Address [address] [place] [address] Care Team Providers Name Role Phone Rosio RAMSEY Attending Clinician Unavailable Lab, Jeremy Pob I Attending Clinician Unavailable Problems This patient has no known problems. Allergies, Adverse Reactions, Alerts This patient has no known allergies or adverse reactions. Medications This patient has no known medications. Procedures This patient has no known procedures. Encounters Start End Encounter Admission Attending Care Care Encounter Source Date/Time Date/Time Type Type Clinicians Facility Department ID 2019-09-01 2019-09-01 Telephone CANDI Avelar [id number] 00:00:00 00:00:00 Ellyn AGUILA [id number] [facility] [id number] 2019-08-29 2019-08-29 Laboratory Lab, [facility] [id number] 14:58:06 15:18:06 Only Fam Pob I [facility] [id number] [place] [id number] [facility] [id number] [address] Results This patient has no known results.
[2019-10-11] MEDS ORDERED: NA CHLORIDE 0.9% 1,000 ML ONE (01:01)
[2019-10-11 01:28] LABS: Absolute Lymphocytes (CBC) 2.1 K/uL (0.7-4.9); Basophils % 0.5 % (0-1.3); Hematocrit 39.8 % (39.6-49.0); RBC Red Blood Cell Count 4.64 M/uL (4.33-5.43)
[2019-10-11 01:39] LABS: ALT/SGPT 31 U/L (12-78); AST/SGOT 26 U/L (15-37); Albumin 3.7 g/dL (3.4-5.0); Alkaline Phosphatase 61 U/L (45-117); BUN Blood Urea Nitrogen 16 mg/dL (7-18); Bicarbonate 25 mmol/L (21-32); Bilirubin Direct < 0.1 mg/dL (0-0.2); Bilirubin Total 0.4 mg/dL (0.2-1.0); Glucose Level 136 mg/dL (74-106); Lipase 137 U/L (73-393); Potassium 3.5 mmol/L (3.5-5.1); Protein, Total 7.4 g/dL (6.4-8.2); Sodium Level 141 mmol/L (136-145)
--- NOTE | 2019-10-11 01:48 | ER ---
Nurse's Notes [facility] Name: Gurwinder Garner Age: 28 yrs Sex: Male : 1990 Arrival Date: 10/10/2019 Time: 23:33 Bed 8 Private MD: Diagnosis: Acute Gastroenteritis Presentation: 10/09 23:50 Chief complaint: Patient states: Abdominal pain x 3 days with diarrhea; pain to RLQ is lp1 tender when palpated per patient; Denies any pain with urination, fever. Coronavirus screen: Client denies travel out of the [place] in the last 14 days. At this time, the client does not indicate any symptoms associated with coronavirus-19. The client reports previous COVID testing was negative. Patient states previous negative test 2 weeks ago. Ebola Screen: No symptoms or risks identified at this time. Risk Assessment: Do you want to hurt yourself or someone else? Patient reports no desire to harm self or others. Onset of symptoms was October 10, 2019. 23:50 Method Of Arrival: Ambulatory lp1 23:50 Acuity: ALIRIO 3 lp1 23:52 Initial Sepsis Screen: Does the patient meet any 2 criteria? No. Patient's initial lp1 sepsis screen is negative. Does the patient have a suspected source of infection? No. Patient's initial sepsis screen is negative. Historical: - Allergies: 23:52 No Known Allergies; lp1 - Home Meds: 23:52 None [Active]; lp1 - PMHx: 23:52 None; lp1 - PSHx: 23:52 Hernia repair; lp1 - Immunization history:: Adult Immunizations up to date. - Social history:: Smoking status: Patient denies any tobacco usage or history of. Screenin:52 Abuse screen: Denies threats or abuse. Denies injuries from another. Nutritional lp1 screening: No deficits noted. Tuberculosis screening: No symptoms or risk factors identified. Fall Risk None identified. Assessment: 10/10 00:21 General: Appears in no apparent distress. comfortable, Behavior is calm, cooperative, jb4 appropriate for age. Pain: Complains of pain in right upper quadrant, right lower quadrant and left lower quadrant Pain does not radiate. Pain currently is 4 out of 10 on a pain scale. Quality of pain is described as dull, pressure, Pain began 2-3 days ago. Is continuous. Neuro: Level of Consciousness is awake, alert, obeys commands, Oriented to person, place, time, situation. Cardiovascular: Patient's skin is warm and dry. Respiratory: Airway is patent Respiratory effort is even, unlabored, Respiratory pattern is regular, symmetrical. GI: Abdomen is flat, non-distended, Bowel sounds present X 4 quads. Abd is soft X 4 quads Abd is non tender in left upper quadrant Abdomen is tender to palpation in right upper quadrant, right lower quadrant and left lower quadrant. : No signs and/or symptoms were reported regarding the genitourinary system. EENT: No signs and/or symptoms were reported regarding the EENT system. Derm: Skin is intact, Skin is pink, warm \T\ dry. Musculoskeletal: Circulation, motion, and sensation intact. Range of motion: intact in all extremities. 01:54 Reassessment: Patient appears in no apparent distress at this time. Patient is alert, rr5 oriented x 3, equal unlabored respirations, skin warm/dry/pink. discharge instruction given and explained without complaints made. Patient denies pain at this time. Patient states feeling better. Patient states symptoms have improved. Vital Signs: 10/09 23:52 BP 147 / 104; Pulse 59; Resp 16; Temp 98.4(O); Pulse Ox 99% on R/A; Weight 79.38 kg lp1 (R); Height 5 ft. 8 in. (172.72 cm); Pain 4/10; 10/10 01:55 BP 133 / 84; Pulse 62; Resp 19; Pulse Ox 99% ; Pain 0/10; rr5 10/09 23:52 Body Mass Index 26.61 (79.38 kg, 172.72 cm) lp1 ED Course: 10/09 23:33 Patient arrived in ED. cl3 23:51 Triage completed. lp1 23:52 Arm band placed on right wrist. lp1 23:59 Ash Prieto PA is PHCP. jr8 23:59 Levi Francisco MD is Attending Physician. jr8 10/10 00:08 Inserted saline lock: 20 gauge in left antecubital area, using aseptic technique. Blood jb5 collected. 00:21 Delmer Bush RN is Primary Nurse. jb4 00:21 Patient has correct armband on for positive identification. Bed in low position. Call jb4 light in reach. Side rails up X 1. Pulse ox on. NIBP on. 01:54 No provider procedures requiring assistance completed. IV discontinued, intact, rr5 bleeding controlled, No redness/swelling at site. Pressure dressing applied. Administered Medications: 00:51 Not Given (Patient Refused): Bentyl 20 mg PO once jb4 00:51 Not Given (Patient Refused): Zofran (Ondansetron) 4 mg IVP once; over 2 minutes jb4 01:06 Drug: NS 0.9% 1000 ml Route: IV; Rate: 1000 ml; Site: left antecubital; jb4 01:55 Follow up: Response: No adverse reaction; IV Status: Completed infusion; IV Intake: rr5 1000ml Intake: 01:55 IV: 1000ml; Total: 1000ml. rr5 Outcome: 01:47 Discharge ordered by . jr8 01:54 Discharged to home ambulatory. rr5 01:54 Condition: stable 01:54 Discharge instructions given to patient, Instructed on discharge instructions, follow up and referral plans. medication usage, Demonstrated understanding of instructions, follow-up care, medications, Prescriptions given X 4. 01:56 Patient left the ED. rr5 Signatures: Lisa Chan RN RN lp1 Ash Prieto PA PA jr8 Delmer Bush, BRAULIO RN jb4 May Hanson jb5 Levi Galeas RN RN rr5 Moon Landin cl3
--- NOTE | 2019-10-11 01:48 | EDPHYS ---
Physician Documentation [facility] Name: Gurwinder Garner Age: 28 yrs Sex: Male : 1990 Arrival Date: 10/10/2019 Time: 23:33 Bed 8 Private MD: ED Physician Levi Francisco HPI: 10/10 00:49 This 28 yrs old Male presents to ER via Ambulatory with complaints of jr8 Abdominal Pain, Diarrhea. 00:49 The patient presents with abdominal pain in the lower abdomen. Onset: The jr8 symptoms/episode began/occurred gradually, 3 day(s) ago. The symptoms do not radiate. Associated signs and symptoms: Pertinent positives: diarrhea. The symptoms are described as crampy. Modifying factors: The symptoms are alleviated by nothing, the symptoms are aggravated by food. Severity of pain: At its worst the pain was moderate in the emergency department the pain is unchanged. The patient has not experienced similar symptoms in the past. The patient has not recently seen a physician. Historical: - Allergies: 10/09 23:52 No Known Allergies; lp1 - Home Meds: 23:52 None [Active]; lp1 - PMHx: 23:52 None; lp1 - PSHx: 23:52 Hernia repair; lp1 - Immunization history:: Adult Immunizations up to date. - Social history:: Smoking status: Patient denies any tobacco usage or history of. ROS: 10/10 00:49 Eyes: Negative for injury, pain, redness, and discharge, ENT: Negative for injury, jr8 pain, and discharge, Neck: Negative for injury, pain, and swelling, Cardiovascular: Negative for chest pain, palpitations, and edema, Respiratory: Negative for shortness of breath, cough, wheezing, and pleuritic chest pain, Back: Negative for injury and pain, MS/Extremity: Negative for injury and deformity, Skin: Negative for injury, rash, and discoloration, Neuro: Negative for headache, weakness, numbness, tingling, and seizure. Abdomen/GI: Positive for abdominal pain, diarrhea, abdominal cramps, rectal bleeding, Negative for nausea and vomiting, hematemesis, black/tarry stool, rectal pain, bowel incontinence, flatulence. Exam: 00:49 Eyes: Pupils equal round and reactive to light, extra-ocular motions intact. Lids and jr8 lashes normal. Conjunctiva and sclera are non-icteric and not injected. Cornea within normal limits. Periorbital areas with no swelling, redness, or edema. ENT: Nares patent. No nasal discharge, no septal abnormalities noted. Tympanic membranes are normal and external auditory canals are clear. Oropharynx with no redness, swelling, or masses, exudates, or evidence of obstruction, uvula midline. Mucous membranes moist. Neck: Trachea midline, no thyromegaly or masses palpated, and no cervical lymphadenopathy. Supple, full range of motion without nuchal rigidity, or vertebral point tenderness. No Meningismus. Cardiovascular: Regular rate and rhythm with a normal S1 and S2. No gallops, murmurs, or rubs. Normal PMI, no JVD. No pulse deficits. Respiratory: Lungs have equal breath sounds bilaterally, clear to auscultation and percussion. No rales, rhonchi or wheezes noted. No increased work of breathing, no retractions or nasal flaring. Back: No spinal tenderness. No costovertebral tenderness. Full range of motion. Skin: Warm, dry with normal turgor. Normal color with no rashes, no lesions, and no evidence of cellulitis. MS/ Extremity: Pulses equal, no cyanosis. Neurovascular intact. Full, normal range of motion. Neuro: Awake and alert, GCS 15, oriented to person, place, time, and situation. Cranial nerves II-XII grossly intact. Motor strength 5/5 in all extremities. Sensory grossly intact. Cerebellar exam normal. Normal gait. 00:49 Abdomen/GI: Inspection: abdomen appears normal, Bowel sounds: active, all quadrants, Palpation: soft, in all quadrants, mild abdominal tenderness, in the right lower quadrant and left lower quadrant, mass, is not appreciated, rebound tenderness, is not appreciated, voluntary guarding, is not appreciated, involuntary guarding, is not appreciated, no appreciated organomegaly, Indicators: McBurney's point is not tender, Hendricks's sign is negative, Rovsing's sign is negative, Liver: tenderness, is not appreciated. Vital Signs: 10/09 23:52 BP 147 / 104; Pulse 59; Resp 16; Temp 98.4(O); Pulse Ox 99% on R/A; Weight 79.38 kg lp1 (R); Height 5 ft. 8 in. (172.72 cm); Pain 4/10; 10/10 01:55 BP 133 / 84; Pulse 62; Resp 19; Pulse Ox 99% ; Pain 0/10; rr5 10/09 23:52 Body Mass Index 26.61 (79.38 kg, 172.72 cm) lp1 MDM: 00:00 Patient medically screened. 01:46 Data reviewed: vital signs, nurses notes, lab test result(s), and as a result, I will jr8 discharge patient. Data interpreted: Pulse oximetry: on room air is 99 %. Interpretation: normal. Counseling: I had a detailed discussion with the patient and/or guardian regarding: the historical points, exam findings, and any diagnostic results supporting the discharge/admit diagnosis, lab results, the need for outpatient follow up, a family practitioner, to return to the emergency department if symptoms worsen or persist or if there are any questions or concerns that arise at home. Response to treatment: the patient's symptoms have markedly improved after treatment, patient is well hydrated. ED course: Patient feeling much better. Reexamination of abdomen without any pain upon palpation. Labs unremarkable. Will d/c home to f/u with PCP. Most likely gastroenteritis in nature . 10/09 23:59 Order name: Basic Metabolic Panel; Complete Time: 01:40 10/09 23:59 Order name: CBC with Diff; Complete Time: 01:38 10/09 23:59 Order name: Hepatic Function; Complete Time: 01:40 10/09 23:59 Order name: Lipase; Complete Time: 01:40 10/10 00:23 Order name: Urine Dipstick--Ancillary (enter results) ar5 10/09 23:59 Order name: IV Saline Lock; Complete Time: 00:08 10/09 23:59 Order name: Labs collected and sent; Complete Time: 00:08 Administered Medications: 00:51 Not Given (Patient Refused): Bentyl 20 mg PO once jb4 00:51 Not Given (Patient Refused): Zofran (Ondansetron) 4 mg IVP once; over 2 minutes jb4 01:06 Drug: NS 0.9% 1000 ml Route: IV; Rate: 1000 ml; Site: left antecubital; jb4 01:55 Follow up: Response: No adverse reaction; IV Status: Completed infusion; IV Intake: rr5 1000ml Disposition: 06:10 Co-signature as Attending Physician, Levi Francisco MD. mh7 Disposition: 10/11/19 01:47 Discharged to Home. Impression: Acute Gastroenteritis. - Condition is Stable. - Discharge Instructions: Viral Gastroenteritis, Adult. - Prescriptions for Bentyl 20 mg Oral Tablet - take 1 tablet by ORAL route every 6 hours As needed; 20 tablet. Cipro 500 mg Oral Tablet - take 1 tablet by ORAL route every 12 hours for 10 days; 20 tablet. Flagyl 500 mg Oral Tablet - take 1 tablet by ORAL route every 8 hours for 10 days; 30 tablet. Zofran 4 mg Oral Tablet - take 1 tablet by ORAL route every 12 hours As needed; 20 tablet. - Medication Reconciliation Form, Thank You Letter, Antibiotic Education, Prescription Opioid Use form. - Follow up: Private Physician; When: 1 week; Reason: Recheck today's complaints, Continuance of care, Re-evaluation by your physician. - Problem is new. - Symptoms have improved. Signatures: Dispatcher [employer] [facility] Lisa Chan, RN RN lp1 Ash Prieto PA PA jr8 Delmer Bush RN RN jb4 Levi Galeas RN RN rr5 Levi Francisco MD MD 7 Corrections: (The following items were deleted from the chart) 01:55 00:26 Abdomen Pelvis W Con+CT.RAD.BRZ ordered. [facility] EDMS 01:56 01:47 10/11/2019 01:47 Discharged to Home. Impression: Acute Gastroenteritis. Condition rr5 is Stable. Forms are Medication Reconciliation Form, Thank You Letter, Antibiotic Education, Prescription Opioid Use. Follow up: Private Physician; When: 1 week; Reason: Recheck today's complaints, Continuance of care, Re-evaluation by your physician. Problem is new. Symptoms have improved. jr8
[2019-10-11 02:42] VITALS: TEMP 98.4; O2SAT 99
[2019-10-11 02:43] VITALS: BP 133/84
[2019-10-11 02:59] LABS: Urine Blood NEGATIVE (NEG); Urine Glucose NEGATIVE (NEG); Urine Protein NEGATIVE (NEG); Urine Specific Gravity >1.030 (1.005-1.030); Urine pH 5.5 (5.0-7.0)
== END 2019-10-11 01:56 | disposition home or self-care (01) ==
LOC: ER 23:33
DX: K52.9 Noninfective gastroenteritis and colitis, unspecified (principal)
CPT/HCPCS: 36415; 80048; 80076; 81003; 83690; 85025; 96360; 99284; J7030

== ENCOUNTER 2020-10-01 06:12 | Emergency (ER) | payer SELFPAY ==
[2020-10-01 06:52] LABS: Urine Blood Trace-intact (Negative); Urine Glucose Negative (Negative); Urine Protein 1+ (Negative)
[2020-10-01 07:01] LABS: Absolute Lymphocytes (CBC) 1.4 K/uL (0.7-4.9); Basophils % 0.3 % (0-1.3); Hematocrit 46.1 % (39.6-49.0); Lymphocytes % 19.7 % (15.3-44.8); RBC Red Blood Cell Count 5.41 M/uL (4.33-5.43)
[2020-10-01] MEDS ORDERED: ONDANSETRON 4 MG/2 ML VIAL ONE (07:05)
[2020-10-01] MEDS ORDERED: NA CHLORIDE 0.9% 1,000 ML ONE (07:05)
[2020-10-01 07:15] LABS: Potassium 3.7 mmol/L (3.5-5.1)
--- NOTE | 2020-10-01 08:05 | ER ---
Nurse's Notes [facility] Name: Gurwinder Garner Age: 29 yrs Sex: Male : 1990 Arrival Date: 10/01/2020 Time: 06:15 Bed DIS11 Private MD: Diagnosis: Nausea with vomiting, unspecified Presentation: 10/01 06:56 Chief complaint: Patient states: he got overheated at work yesterday and he began bb vomiting with cough, congestion, and headache. Coronavirus screen: cough unrelated to allergies, headache, vomiting. Ebola Screen: No symptoms or risks identified at this time. Initial Sepsis Screen: Does the patient meet any 2 criteria? No. Patient's initial sepsis screen is negative. Does the patient have a suspected source of infection? No. Patient's initial sepsis screen is negative. Risk Assessment: Do you want to hurt yourself or someone else? Patient reports no desire to harm self or others. Onset of symptoms was October 01, 2020. 06:56 Method Of Arrival: Ambulatory 06:56 Acuity: ALIRIO 3 bb Historical: - Allergies: 07:02 No Known Allergies; bb - Home Meds: 07:02 None [Active]; bb - PMHx: 07:02 None; bb - PSHx: 07:02 None; bb - Immunization history:: Adult Immunizations up to date, Sarina. - Social history:: Smoking status: unknown. Vital Signs: 06:56 BP 144 / 98; Pulse 91; Resp 18 S; Temp 98.7(O); Pulse Ox 96% on R/A; Weight 86.18 kg bb (R); Height 5 ft. 7 in. (170.18 cm) (R); 06:56 Body Mass Index 29.76 (86.18 kg, 170.18 cm) bb ED Course: 06:15 Patient arrived in ED. bp1 06:32 [facility]iwld[facility] Quintan[facility]C [facility] kb 06:32 Frank Diez MD is Attending Physician. kb 07:02 Triage completed. bb 07:02 Arm band placed on. bb Administered Medications: 06:50 Drug: NS 0.9% 1000 ml Route: IV; Rate: 1000 ml; Site: left antecubital; kb 06:51 Drug: Zofran (Ondansetron) 4 mg Route: IVP; Site: left antecubital; kb Outcome: 08:04 Discharge ordered by . natali 08:41 Patient left the ED. kb Signatures: Awilda Quintanilla FNP-C FNP-Bernice Davison, RN RN bb Alexandra Ahn mw2 Daly Douglas [facility] Corrections: (The following items were deleted from the chart) 06:57 06:49 CORONAVIRUS+MR.LAB.LISA drawn and sent. mw2 EDMS
--- NOTE | 2020-10-01 08:05 | EDPHYS ---
Physician Documentation [facility] Name: Gurwinder Garner Age: 29 yrs Sex: Male : 1990 Arrival Date: 10/01/2020 Time: 06:15 Bed DIS11 Private MD: ED Physician Frank Diez HPI: 10/01 06:56 This 29 yrs old Male presents to ER via Unassigned with complaints of kb Vomiting. 06:56 The patient presents to the emergency department with nausea, vomiting. Onset: The kb symptoms/episode began/occurred yesterday. Possible causes: "got overheated". The symptoms are aggravated by nothing. The symptoms are alleviated by nothing. Associated signs and symptoms: Pertinent positives: nausea, vomiting. Severity of symptoms: At their worst the symptoms were moderate in the emergency department the symptoms have improved mildly. The patient has not experienced similar symptoms in the past. The patient has not recently seen a physician. Pt reports he got overheated while working yesterday. Reports cough, runny nose, nausea, vomiting and headache developed afterwards. Reports dark urine this morning. Believes he is dehydrated. Historical: - Allergies: 07:02 No Known Allergies; bb - Home Meds: 07:02 None [Active]; bb - PMHx: 07:02 None; bb - PSHx: 07:02 None; bb - Immunization history:: Adult Immunizations up to date, Sarina. - Social history:: Smoking status: unknown. ROS: 06:55 Constitutional: Negative for fever, chills, and weight loss. kb 06:55 ENT: Positive for rhinorrhea. 06:55 Respiratory: Positive for cough, Negative for dyspnea on exertion, hemoptysis, orthopnea, pleurisy, shortness of breath, sputum production, wheezing. 06:55 Abdomen/GI: Positive for nausea and vomiting, Negative for abdominal pain. 06:55 Neuro: Positive for headache. 06:55 All other systems are negative. Exam: 06:54 Constitutional: This is a well developed, well nourished patient who is awake, alert, kb and in no acute distress. Head/Face: Normocephalic, atraumatic. ENT: Moist Mucous membranes Cardiovascular: Regular rate and rhythm with a normal S1 and S2. No gallops, murmurs, or rubs. No pulse deficits. Respiratory: Respirations even and unlabored. No increased work of breathing, no retractions or nasal flaring. Abdomen/GI: Soft, non-tender. No distention Skin: Warm, dry with normal turgor. Normal color. MS/ Extremity: Pulses equal, no cyanosis. Neurovascular intact. Full, normal range of motion. Neuro: Awake and alert, GCS 15, oriented to person, place, time, and situation. Moves all extremities. Normal gait. Psych: Awake, alert, with orientation to person, place and time. Behavior, mood, and affect are within normal limits. Vital Signs: 06:56 BP 144 / 98; Pulse 91; Resp 18 S; Temp 98.7(O); Pulse Ox 96% on R/A; Weight 86.18 kg bb (R); Height 5 ft. 7 in. (170.18 cm) (R); 06:56 Body Mass Index 29.76 (86.18 kg, 170.18 cm) bb Procedures: 06:53 Peripheral line: by aseptic technique a peripheral line was placed in the left antecubital vein. MDM: 06:32 Patient medically screened. kb 06:54 Data reviewed: vital signs, nurses notes. Data interpreted: Pulse oximetry: on room air kb is 96 %. Interpretation: normal. 08:03 Counseling: I had a detailed discussion with the patient and/or guardian regarding: the kb historical points, exam findings, and any diagnostic results supporting the discharge/admit diagnosis, lab results, the need for outpatient follow up, a family practitioner, to return to the emergency department if symptoms worsen or persist or if there are any questions or concerns that arise at home. 10/01 06:33 Order name: CBC with Diff; Complete Time: 07:31 kb 10/01 06:33 Order name: Basic Metabolic Panel; Complete Time: 07:25 kb 10/01 06:33 Order name: CPK; Complete Time: 07:25 kb 10/01 06:52 Order name: Urine Dipstick-Ancillary; Complete Time: 06:58 EDMS 10/01 07:59 Order name: SARS-COV-2 RT PCR; Complete Time: 08:03 EDMS 10/01 06:33 Order name: IV Start; Complete Time: 06:50 kb 10/01 06:33 Order name: Urine Dipstick-Ancillary (obtain specimen); Complete Time: 06:49 kb Administered Medications: 06:50 Drug: NS 0.9% 1000 ml Route: IV; Rate: 1000 ml; Site: left antecubital; kb 06:51 Drug: Zofran (Ondansetron) 4 mg Route: IVP; Site: left antecubital; kb Disposition: 10/02 07:15 Co-signature as Attending Physician, Frank Diez MD I agree with the assessment and kdr plan of care. Disposition Summary: 10/01/20 08:04 Discharge Ordered Location: Home kb Condition: Stable kb Diagnosis - Nausea with vomiting, unspecified kb Followup: kb - With: Emergency Department - When: As needed - Reason: Worsening of condition Followup: kb - With: Private Physician - When: 2 - 3 days - Reason: Recheck today's complaints, Continuance of care, Re-evaluation by your physician Discharge Instructions: - Discharge Summary Sheet kb - Nausea and Vomiting, Adult, [id number] kb - Heat Exhaustion kb Forms: - Medication Reconciliation Form kb - Work release form kb - Thank You Letter kb - Antibiotic Education kb - Prescription Opioid Use kb Prescriptions: - Zofran 4 mg Oral Tablet - take 1 tablet by ORAL route every 6 hours As needed; 20 tablet; Refills: 0, kb Product Selection Permitted Signatures: Dispatcher [employer] EDMS Awilda Quintanilla, SLICK-Nickolas KRUGER-Frank Brannon MD MD kdr Bernice Ro, RN RN bb Corrections: (The following items were deleted from the chart) 10/01 06:57 06:34 CORONAVIRUS+BRZ ordered. EDMS EDMS
[2020-10-01 08:46] VITALS: BP 144/98; TEMP 98.7; O2SAT 96
== END 2020-10-01 08:41 | disposition home or self-care (01) ==
LOC: ER 06:12
PROC: 05HF33Z Insertion of Infusion Device into Left Cephalic Vein, Percutaneous Approach (ICD-10-PCS; principal; 2020-10-01)
DX: R11.2 Nausea with vomiting, unspecified (principal); Z20.822 Contact with and (suspected) exposure to COVID-19
CPT/HCPCS: 36415; 80048; 81003; 82550; 85025; 96374; 99282; J2405; J7030; U0003

== ENCOUNTER 2020-11-05 10:04 | Emergency (ER) | payer SELFPAY ==
[2020-11-05 11:54] LABS: SARS-COV-2 RT PCR NEGATIVE (NEGATIVE)
--- NOTE | 2020-11-05 12:30 | EDPHYS ---
Physician Documentation [facility] Name: Gurwinder Garner Age: 29 yrs Sex: Male : 1990 Arrival Date: 11/05/2020 Time: 10:08 Bed 27 Private MD: ED Physician Parish Bowden HPI: 11/05 10:47 This 29 yrs old Male presents to ER via Ambulatory with complaints of Cough, rn Body aches. 10:47 The patient or guardian reports cough, that is intermittent, described as mild, with no rn sputum. Onset: The symptoms/episode began/occurred yesterday. Severity of symptoms: At their worst the symptoms were mild, in the emergency department the symptoms are unchanged. Modifying factors: The symptoms are alleviated by nothing, the symptoms are aggravated by nothing. Associated signs and symptoms: Pertinent positives: rhinorrhea, sore throat, Pertinent negatives: chest pain, vomiting. The patient has not experienced similar symptoms in the past. The patient has not recently seen a physician. Patient reports began yesterday with symptoms of cough, congestion, body aches, fatigue. Also with decreased appetite.. Historical: - Allergies: 10:23 No Known Allergies; ss - Home Meds: 10:23 None [Active]; ss - PMHx: 10:23 None; ss - PSHx: 10:23 None; ss - Immunization history:: Adult Immunizations up to date, Client reports receiving the 2nd dose of the Covid vaccine. - Social history:: Smoking status: Patient reports use of chewing tobacco. - Family history:: not pertinent. - Hospitalizations: : No recent hospitalization is reported. ROS: 10:47 Constitutional: Negative for fever, chills, and weight loss, + myalgias Eyes: Negative rn for injury, pain, redness, and discharge, ENT: Positive for nasal congestion and sore throat Neck: Negative for injury, pain, and swelling, Cardiovascular: Negative for chest pain, palpitations, and edema, Respiratory: Positive for cough, negative for shortness of breath or hemoptysis Abdomen/GI: Negative for abdominal pain, nausea, vomiting, diarrhea, and constipation, MS/Extremity: Negative for injury and deformity, Skin: Negative for injury, rash, and discoloration, Neuro: Negative for numbness, tingling, and seizure. 10:47 All other systems are negative. Exam: 10:47 Constitutional: This is a well developed, well nourished patient who is awake, alert, rn and in no acute distress. Head/Face: Normocephalic, atraumatic. Eyes: Pupils equal round and reactive to light, extra-ocular motions intact. Lids and lashes normal. Conjunctiva and sclera are non-icteric and not injected. Cornea within normal limits. Periorbital areas with no swelling, redness, or edema. ENT: No stridor, mucous membranes moist. Neck: Trachea midline, no masses palpated, and no cervical lymphadenopathy. Supple, full range of motion without nuchal rigidity, or vertebral point tenderness. No Meningismus. Cardiovascular: Regular rate and rhythm. No pulse deficits. Respiratory: Speaking full sentences, unlabored. No increased work of breathing, no retractions or nasal flaring. Abdomen/GI: Soft, nontender Skin: Warm, dry with normal turgor. Normal color with no rashes, no lesions, and no evidence of cellulitis. MS/ Extremity: Pulses equal, no cyanosis. Neurovascular intact. Full, normal range of motion. Equal circumference. Neuro: Awake and alert, GCS 15 Vital Signs: 10:21 BP 144 / 89; Pulse 82; Resp 18; Temp 98.1(TE); Pulse Ox 99% on R/A; Weight 86.18 kg; ss Height 5 ft. 7 in. (170.18 cm); Pain 7/10; 11:00 BP 136 / 83; Pulse 80; Resp 16; Pulse Ox 98% on R/A; vg1 12:00 BP 131 / 85; Pulse 70; Resp 16; Pulse Ox 97% on R/A; vg1 10:21 Body Mass Index 29.76 (86.18 kg, 170.18 cm) ss MDM: 10:14 Patient medically screened. rn 12:29 Differential Diagnosis: Bronchitis Influenza Upper Respiratory Infection Sinusitis rn Pharyngitis Allergic Rhinitis Viral Syndrome Pneumonia. Data reviewed: vital signs, nurses notes, lab test result(s), and as a result, I will discharge patient. Data interpreted: Pulse oximetry: on room air is 98 %. Interpretation: normal. Counseling: I had a detailed discussion with the patient and/or guardian regarding: the historical points, exam findings, and any diagnostic results supporting the discharge/admit diagnosis, lab results, the need for outpatient follow up, to return to the emergency department if symptoms worsen or persist or if there are any questions or concerns that arise at home. Special discussion: I discussed with the patient/guardian in detail that at this point there is no indication for admission to the hospital. It is understood, however, that if the symptoms persist or worsen the patient needs to return immediately for re-evaluation. 11/05 10:24 Order name: Strep; Complete Time: 12:29 rn 11/05 11:54 Order name: COVID-19/FLU A+B; Complete Time: 12:29 EDMS 11/05 12:07 Order name: Throat Culture EDMS Administered Medications: No medications were administered Disposition Summary: 11/05/20 12:30 Discharge Ordered Location: Home rn Problem: new rn Symptoms: have improved rn Condition: Stable rn Diagnosis - Cough rn - Acute upper respiratory infection, unspecified rn Followup: rn - With: Private Physician - When: As needed - Reason: Recheck today's complaints, Re-evaluation by your physician Discharge Instructions: - Discharge Summary Sheet rn - Upper Respiratory Infection, Adult rn - Viral Respiratory Infection rn - Cough, Adult rn Forms: - Medication Reconciliation Form rn - Thank You Letter rn - 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 EDWV EDMS 11:10 10:25 Influenza Screen (A \T\ B)+BA.LAB.BRZ ordered. EDWV EDMS
--- NOTE | 2020-11-05 12:30 | ER ---
Nurse's Notes [facility] Name: Gurwinder Garner Age: 29 yrs Sex: Male : 1990 Arrival Date: 11/05/2020 Time: 10:08 Bed 27 Private MD: Diagnosis: Cough;Acute upper respiratory infection, unspecified Presentation: 11/05 10:21 Chief complaint: Patient states: cough, body aches and shortness of breath that began ss yesterday. Told to come get a covid test. Coronavirus screen: Client presents with at least one sign or symptom that may indicate coronavirus-19. Standard/surgical mask placed on the client. Provider contacted for isolation considerations. Ebola Screen: Patient denies exposure to infectious person. Patient denies travel to an Ebola-affected area in the 21 days before illness onset. Initial Sepsis Screen: Does the patient meet any 2 criteria? No. Patient's initial sepsis screen is negative. Does the patient have a suspected source of infection? No. Patient's initial sepsis screen is negative. Risk Assessment: Do you want to hurt yourself or someone else? Patient reports no desire to harm self or others. Onset of symptoms was November 04, 2020. 10:21 Method Of Arrival: Ambulatory ss 10:21 Acuity: ALIRIO 4 ss Historical: - Allergies: 10:23 No Known Allergies; ss - Home Meds: 10:23 None [Active]; ss - PMHx: 10:23 None; ss - PSHx: 10:23 None; ss - Immunization history:: Adult Immunizations up to date, Client reports receiving the 2nd dose of the Covid vaccine. - Social history:: Smoking status: Patient reports use of chewing tobacco. - Family history:: not pertinent. - Hospitalizations: : No recent hospitalization is reported. Screenin:14 Abuse screen: Denies threats or abuse. Nutritional screening: No deficits noted. vg1 Tuberculosis screening: No symptoms or risk factors identified. Fall Risk None identified. Assessment: 11:13 General: Appears in no apparent distress. comfortable, Behavior is calm, cooperative. vg1 Pain: Complains of pain in throat Pain currently is 7 out of 10 on a pain scale. Pain began 2-3 days ago. Neuro: Level of Consciousness is awake, alert, obeys commands, Oriented to person, place, time, situation. Cardiovascular: Patient's skin is warm and dry. Respiratory: Airway is patent Respiratory effort is even, unlabored. GI: Reports nausea. : No signs and/or symptoms were reported regarding the genitourinary system. EENT: Throat is reddened. Derm: Skin is intact, is healthy with good turgor. Musculoskeletal: Circulation, motion, and sensation intact. 12:29 Reassessment: Patient appears in no apparent distress at this time. No changes from vg1 previously documented assessment. Patient and/or family updated on plan of care and expected duration. Pain level reassessed. Patient is alert, oriented x 3, equal unlabored respirations, skin warm/dry/pink. Vital Signs: 10:21 BP 144 / 89; Pulse 82; Resp 18; Temp 98.1(TE); Pulse Ox 99% on R/A; Weight 86.18 kg; Height 5 ft. 7 in. (170.18 cm); Pain 7/10; 11:00 BP 136 / 83; Pulse 80; Resp 16; Pulse Ox 98% on R/A; vg1 12:00 BP 131 / 85; Pulse 70; Resp 16; Pulse Ox 97% on R/A; vg1 10:21 Body Mass Index 29.76 (86.18 kg, 170.18 cm) ED Course: 10:08 Patient arrived in ED. mr 10:14 Parish Bowden MD is Attending Physician. rn 10:22 Triage completed. ss 10:23 Arm band placed on right wrist. ss 11:01 Patient has correct armband on for positive identification. Bed in low position. Call 5 light in reach. Pillow given. Pulse ox on. NIBP on. 11:01 Strep Sent. mh5 11:01 COVID swab sent to lab. Flu and/or RSV swab sent to lab. Strep swab sent to lab. 5 11:13 Rayne Paiz, RN is Primary Nurse. vg1 12:43 No provider procedures requiring assistance completed. Patient did not have IV access vg1 during this emergency room visit. Administered Medications: No medications were administered Outcome: 12:30 Discharge ordered by . rn 12:44 Discharged to home ambulatory. vg1 12:44 Condition: stable 12:44 Discharge instructions given to patient, Instructed on discharge instructions, follow up and referral plans. Demonstrated understanding of instructions, follow-up care. 12:44 Patient left the ED. vg1 Signatures: Chastity Lopez mr Parish Bowden MD MD rn Smirch, Shelby, RN RN ss Martinez, Maria [facility] Rayne Paiz RN RN vg1 Corrections: (The following items were deleted from the chart) 11:10 11:01 Influenza Screen (A \T\ B)+BA.LAB.BRZ drawn and sent. [facility] EDMS 11: 11:01 CORONAVIRUS+MR.LAB.BRZ drawn and sent. [facility] EDMS
[2020-11-05 12:49] VITALS: TEMP 98.1
[2020-11-05 12:52] VITALS: BP 131/85; O2SAT 97
== END 2020-11-05 12:44 | disposition home or self-care (01) ==
LOC: ER 10:04
DX: J06.9 Acute upper respiratory infection, unspecified (principal); F17.220 Nicotine dependence, chewing tobacco, uncomplicated; Z20.822 Contact with and (suspected) exposure to COVID-19
CPT/HCPCS: 0240U; 87070; 87081; 99283

== ENCOUNTER 2020-12-15 07:37 | Emergency (ER) | payer SELFPAY ==
[2020-12-15 08:28] LABS: Absolute Lymphocytes (CBC) 1.7 K/uL (0.7-4.9); Basophils % 0.5 % (0-1.3); Hematocrit 42.8 % (39.6-49.0); Lymphocytes % 32.4 % (15.3-44.8); MPV 9.5 fL (7.6-11.3); RBC Red Blood Cell Count 4.98 M/uL (4.33-5.43)
[2020-12-15 08:38] LABS: Protime INR 1.04
--- NOTE | 2020-12-15 09:58 | RAD REPORT ---
EXAM DESCRIPTION: RAD - Chest Single View - 12/15/2020 8:22 am CLINICAL HISTORY: CHEST PAIN Chest pain. COMPARISON: Chest Pa And Lat (2 Views) dated 04/23/2018 FINDINGS: Portable technique limits examination quality. Slightly prominent interstitial lung markings could indicate a viral infection or bronchitis. The hea rt is normal in size. No displaced fractures.
[2020-12-15 10:53] LABS: ALT/SGPT 28 U/L (12-78); AST/SGOT 19 U/L (15-37); BUN Blood Urea Nitrogen 11 mg/dL (7-18); Bicarbonate 31 mmol/L (21-32); Glucose Level 94 mg/dL (74-106); Magnesium 2.3 mg/dL (1.8-2.4); Potassium 4.2 mmol/L (3.5-5.1); Sodium Level 142 mmol/L (136-145)
[2020-12-15 10:58] LABS: Alkaline Phosphatase 63 U/L (45-117); Bilirubin Direct < 0.1 mg/dL (0-0.2); Bilirubin Total 0.3 mg/dL (0.2-1.0); Protein, Total 7.3 g/dL (6.4-8.2); Troponin (Emerg Dept Use Only) < 0.02 ng/mL (0.0-0.045)
--- NOTE | 2020-12-15 11:07 | EDPHYS ---
Physician Documentation [facility] Name: Gurwinder Garner Age: 29 yrs Sex: Male : 1990 Arrival Date: 12/15/2020 Time: 07:38 Bed 13 Private MD: ED Physician Artemio Godwin HPI: 12/15 08:19 This 29 yrs old Male presents to ER via Ambulatory with complaints of Chest sp3 Pain. 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 Upon questioning, patient states that he has been having these chest pain symptoms for approximately 6 months in the anterior left side of his chest that last anywhere from a few minutes to 2 hours maximum and vary in frequency from once every 2 weeks to once a day. Patient states that he is not on any medications but has taken a few "auditor tax diet pills" over the last week and also reports occasional energy drink usage approximately 2 drinks per week consisting of monster drinks. He denies any illicit drug use, smoking, or heavy alcohol consumption. He also denies family history of early , heart attack, or vascular disease including dissection and aneurysm. Along with the symptoms he denies headache, neck pain, back pain, abdominal pain, shortness of breath, URI symptoms, fever, neurological symptoms including loss of sensation, tingling, motor weakness in any of his extremities, loss of bowel or bladder symptoms, or any other symptoms on ROS at this time.. Historical: - Allergies: 07:40 No Known Allergies; aa5 - Home Meds: 07:40 None [Active]; aa5 - PMHx: 07:40 None; aa5 - PSHx: 07:40 None; aa5 - Immunization history:: Client reports receiving the Dante \\T\\ Dante single-dose vaccine. - Social history:: Smoking status: Patient denies any tobacco usage or history of. ROS: 08:22 Constitutional: Negative for fever, chills, and weight loss, Eyes: Negative for injury, sp3 pain, redness, and discharge, ENT: Negative for injury, pain, and discharge, Neck: Negative for injury, pain, and swelling, Respiratory: Negative for shortness of breath, cough, wheezing, and pleuritic chest pain, Abdomen/GI: Negative for abdominal pain, nausea, vomiting, diarrhea, and constipation, Back: Negative for injury and pain, MS/Extremity: Negative for injury and deformity, Skin: Negative for injury, rash, and discoloration, Neuro: Negative for headache, weakness, numbness, tingling, and seizure, Psych: Negative for depression, anxiety, suicide ideation, homicidal ideation, and hallucinations, Allergy/Immunology: Negative for hives, rash, and allergies, Hematologic/Lymphatic: Negative for swollen nodes, abnormal bleeding, and unusual bruising. 08:22 All other systems are negative. Exam: 08:22 Constitutional: This is a well developed, well nourished patient who is awake, alert, sp3 and in no acute distress. Head/Face: Normocephalic, atraumatic. Eyes: Pupils equal round and reactive to light, extra-ocular motions intact. Lids and lashes normal. Conjunctiva and sclera are non-icteric and not injected. Cornea within normal limits. Periorbital areas with no swelling, redness, or edema. ENT: Nares patent. No nasal discharge, no septal abnormalities noted. External auditory canals are clear. Oropharynx with no redness, swelling, or masses, exudates, or evidence of obstruction, uvula midline. Mucous membranes moist. Neck: Trachea midline, no thyromegaly or masses palpated, and no cervical lymphadenopathy. Supple, full range of motion without nuchal rigidity, or vertebral point tenderness. No Meningismus. Chest/axilla: Normal chest wall appearance and motion. Nontender with no deformity. No lesions are appreciated. Cardiovascular: Regular rate and rhythm with a normal S1 and S2. No gallops, murmurs, or rubs. Normal PMI, no JVD. No pulse deficits. Respiratory: Lungs have equal breath sounds bilaterally, clear to auscultation and percussion. No rales, rhonchi or wheezes noted. No increased work of breathing, no retractions or nasal flaring. Abdomen/GI: Soft, non-tender, with normal bowel sounds. No distension or tympany. No guarding or rebound. No evidence of tenderness throughout. Back: No spinal tenderness. No costovertebral tenderness. Full range of motion. Skin: Warm, dry with normal turgor. Normal color with no rashes, no lesions, and no evidence of cellulitis. MS/ Extremity: Pulses equal, no cyanosis. Neurovascular intact. Full, normal range of motion. Neuro: Awake and alert, GCS 15, oriented to person, place, time, and situation. Cranial nerves II-XII grossly intact. Motor strength 5/5 in all extremities. Sensory grossly intact. Cerebellar exam normal. Normal gait. Psych: Awake, alert, with orientation to person, place and time. Behavior, mood, and affect are within normal limits. 08:22 ECG was reviewed by the Attending Physician. EKG demonstrates normal sinus rhythm at 61 sp3 bpm with an incomplete right bundle branch block and delta wave consistent with possible Bhhjb-Axdnjsvyd-Hiili syndrome. No other significant ST/T ischemic changes are noted. No PVCs or other nonregular beats noted. Vital Signs: 07:41 BP 144 / 105; Pulse 68; Resp 16 S; Temp 97.0(TE); Pulse Ox 96% on R/A; Weight 88.45 kg aa5 (R); Height 5 ft. 7 in. (170.18 cm) (R); Pain 0/10; 08:18 BP 131 / 90; Pulse 79; Resp 17; Pulse Ox 99% on R/A; tw2 09:47 BP 122 / 81; Pulse 54; Resp 17; Pulse Ox 100% on R/A; tw2 10:45 BP 124 / 76; Pulse 90; Resp 17; Pulse Ox 95% on R/A; tw2 07:41 Body Mass Index 30.54 (88.45 kg, 170.18 cm) aa5 MDM: 07:45 Patient medically screened. sp3 08:22 Data reviewed: vital signs, nurses notes. 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 Will obtain laboratory values, chest x-ray, and evaluate on the satellite project site monitor. If symptoms are negative will likely discharge to cardiology work-up and likely Holter monitoring at home. Patient exhibits no tachycardia or reentrant syndromes here in the ED and has had no history of syncope or altered mental status at this time.. 11:05 ED course: Laboratory work-up is negative and chest x-ray is normal. Will discharge sp3 patient home with cardiology follow-up and clear instructions not to take any stimulant supplements of any kind as well as stop taking energy drinks. Patient understands signs symptoms to return to the ED. Heart rate remains normal patient is pain-free on discharge. Vital signs are completely normal.. 12/15 07:47 Order name: Basic Metabolic Panel; Complete Time: 11:04 sp3 12/15 07:47 Order name: CBC with Diff; Complete Time: 08:46 sp3 12/15 07:47 Order name: LFT's; Complete Time: 11:04 sp3 12/15 07:47 Order name: Magnesium; Complete Time: 11:04 sp3 12/15 07:47 Order name: PT-INR; Complete Time: 08:46 sp3 12/15 07:47 Order name: Troponin (emerg Dept Use Only); Complete Time: 11:04 sp3 12/15 07:47 Order name: XRAY Chest (1 view); Complete Time: 10:11 sp3 12/15 07:47 Order name: EKG; Complete Time: 07:48 sp3 12/15 07:47 Order name: Cardiac monitoring; Complete Time: 08:13 sp3 12/15 07:47 Order name: EKG - Nurse/Tech; Complete Time: 08:13 sp3 12/15 07:47 Order name: IV Saline Lock; Complete Time: 08:13 sp3 12/15 07:47 Order name: Labs collected and sent; Complete Time: 08:13 sp3 12/15 07:47 Order name: D-Dimer; Complete Time: 08:46 sp3 Administered Medications: No medications were administered Disposition Summary: 12/15/20 11:06 Discharge Ordered Location: Home sp3 Condition: Stable sp3 Diagnosis - Abnormal electrocardiogram [ECG] [EKG] sp3 - Syncope Near sp3 - Chest pain, unspecified sp3 Followup: sp3 - With: Kody Tavarez MD - When: Upon discharge from the Emergency Department - Reason: Continuance of care Discharge Instructions: - Discharge Summary Sheet tw2 - Electrocardiogram sp3 - Near-Syncope sp3 - Vpcvz-Rvkanjmhi-Ohbco Syndrome sp3 Forms: - Work release form tw2 - Medication Reconciliation Form sp3 - Thank You Letter sp3 - Antibiotic Education sp3 - Prescription Opioid Use sp3 Signatures: Dispatcher [employer] Magali Kingston RN RN aa5 Artemio Godwin MD MD sp3 Corrections: (The following items were deleted from the chart) 07:41 07:40 Immunization history: Client reports receiving the 2nd dose of the Covid vaccine, aa5 aa5
--- NOTE | 2020-12-15 11:07 | ER ---
Nurse's Notes [facility] Name: Gurwinder Garner Age: 29 yrs Sex: Male : 1990 Arrival Date: 12/15/2020 Time: 07:38 Bed 13 Private MD: Diagnosis: Abnormal electrocardiogram [ECG] [EKG];Syncope Near;Chest pain, unspecified Presentation: 12/15 07:41 Onset of symptoms was 2020. aa5 07:41 Acuity: ALIRIO 3 aa5 07:41 Chief complaint: Patient states: chest pain that began approximately 6 months ago but aa5 has become more frequent. Pt states "today I was at work and the ambulance checked me out for the chest pain and then I started feeling tingling on my left hand". Coronavirus screen: At this time, the client does not indicate any symptoms associated with coronavirus-19. Ebola Screen: No symptoms or risks identified at this time. Initial Sepsis Screen: Does the patient meet any 2 criteria? No. Patient's initial sepsis screen is negative. Does the patient have a suspected source of infection? No. Patient's initial sepsis screen is negative. Risk Assessment: Do you want to hurt yourself or someone else? Patient reports no desire to harm self or others. 07:41 Method Of Arrival: Ambulatory aa5 Historical: - Allergies: 07:40 No Known Allergies; aa5 - Home Meds: 07:40 None [Active]; aa5 - PMHx: 07:40 None; aa5 - PSHx: 07:40 None; aa5 - Immunization history:: Client reports receiving the Dante \\T\\ Dante single-dose vaccine. - Social history:: Smoking status: Patient denies any tobacco usage or history of. Screenin:44 Abuse screen: Denies threats or abuse. Nutritional screening: No deficits noted. tw2 Tuberculosis screening: No symptoms or risk factors identified. Fall Risk None identified. Assessment: 08:14 General: Appears in no apparent distress. slender, well groomed, Behavior is calm, tw2 cooperative, appropriate for age. Pain: Denies pain. Pain radiates to left hand "not hurting now but when it did get sharp i noticed tingling in my hand" Pain began "couple of months ago". Neuro: Level of Consciousness is awake, alert, obeys commands, Oriented to person, place, time, situation. Cardiovascular: Capillary refill < 3 seconds Patient's skin is warm and dry. Respiratory: Airway is patent Respiratory effort is even, unlabored, Respiratory pattern is regular, symmetrical. GI: No signs and/or symptoms were reported involving the gastrointestinal system. Abdomen is flat. : No signs and/or symptoms were reported regarding the genitourinary system. Musculoskeletal: Circulation, motion, and sensation intact. 09:48 Reassessment: Patient appears in no apparent distress at this time. No changes from tw2 previously documented assessment. Patient and/or family updated on plan of care and expected duration. Pain level reassessed. Patient is alert, oriented x 3, equal unlabored respirations, skin warm/dry/pink. 10:46 Reassessment: Patient appears in no apparent distress at this time. No changes from tw2 previously documented assessment. Patient and/or family updated on plan of care and expected duration. Pain level reassessed. Patient is alert, oriented x 3, equal unlabored respirations, skin warm/dry/pink. 11:17 Reassessment: Patient appears in no apparent distress at this time. No changes from tw2 previously documented assessment. Patient and/or family updated on plan of care and expected duration. Pain level reassessed. Patient is alert, oriented x 3, equal unlabored respirations, skin warm/dry/pink. Vital Signs: 07:41 BP 144 / 105; Pulse 68; Resp 16 S; Temp 97.0(TE); Pulse Ox 96% on R/A; Weight 88.45 kg aa5 (R); Height 5 ft. 7 in. (170.18 cm) (R); Pain 0/10; 08:18 BP 131 / 90; Pulse 79; Resp 17; Pulse Ox 99% on R/A; tw2 09:47 BP 122 / 81; Pulse 54; Resp 17; Pulse Ox 100% on R/A; tw2 10:45 BP 124 / 76; Pulse 90; Resp 17; Pulse Ox 95% on R/A; tw2 07:41 Body Mass Index 30.54 (88.45 kg, 170.18 cm) aa5 ED Course: 07:38 Patient arrived in ED. as 07:40 Arm band placed on. aa5 07:41 Triage completed. aa5 07:44 Tiffany Phelan, RN is Primary Nurse. tw2 07:45 Artemio Godwin MD is Attending Physician. sp3 07:46 Patient maintains SpO2 saturation greater than 95% on room air. tw2 07:55 Bed in low position. Call light in reach. hall monitor on. Pulse ox on. NIBP on. tw2 08:00 Inserted saline lock: 20 gauge in left antecubital area, using aseptic technique. Blood tw2 collected. 08:22 XRAY Chest (1 view) In Process Unspecified. EDMS 11:05 Kody Tavarez MD is Referral Physician. sp3 11:16 No provider procedures requiring assistance completed. IV discontinued, intact, tw2 bleeding controlled, No redness/swelling at site. Pressure dressing applied. Administered Medications: No medications were administered Outcome: 11:06 Discharge ordered by . sp3 11:16 Discharged to home ambulatory, with significant other. tw2 11:16 Condition: stable 11:16 Discharge instructions given to patient, significant other, Instructed on discharge instructions, follow up and referral plans. Demonstrated understanding of instructions, follow-up care. 11:17 Patient left the ED. tw2 Signatures: Dispatcher [employer] EDMA Margarita Hernandez Audri, RN RN aa5 Tiffany Phelan RN RN tw2 Artemio Godwin MD MD sp3 Corrections: (The following items were deleted from the chart) 07:41 07:40 Immunization history: Client reports receiving the 2nd dose of the Covid vaccine, aa5 aa5
[2020-12-15 11:25] VITALS: TEMP 97
[2020-12-15 11:29] VITALS: BP 124/76; O2SAT 95
== END 2020-12-15 11:17 | disposition home or self-care (01) ==
LOC: ER 07:37
DX: R94.31 Abnormal electrocardiogram [ECG] [EKG] (principal); R07.9 Chest pain, unspecified; R55 Syncope and collapse
CPT/HCPCS: 36415; 71045; 80048; 80076; 83735; 84484; 85025; 85379; 85610; 93005; 99285

== ENCOUNTER 2021-08-03 09:15 | Emergency (ER) | payer SELFPAY ==
--- OUTSIDE RECORDS SUMMARY | 2021-08-03 09:18 | XMS REPORT | Continuity of Care Document ---
:1990 Author Organization [facility] t Address [address] [place] [address] Care Team Providers Name Role Phone Pcp, Does Not Have A Primary Care Physician Mauricio VALDEZ Attending Clinician Anson VALDEZ Attending Clinician Constantin VALDEZ Attending Clinician Doctor Unassigned, Name Attending Clinician Unavailable EBRAHIM Attending Clinician Unavailable Rosio RAMSEY Attending Clinician Unavailable Lab, Fam Pob I Attending Clinician Unavailable Carlita LADD, A Attending Clinician Jf LAU Attending Clinician Unavailable Constantin VALDEZ Admitting Clinician Problems Condition Condition Condition Status Onset Resolution Last Treating Co mments Source Name Details Category Date Date Treatment Clinician Date Keysha-Park Keysha-Park Disease Active 2020-02 U nivers inson-Whit inson-Whit 0-27 it y of e (WPW) e (WPW) 00:00: [place] pattern pattern 00 Medical Branch Chest pain Chest pain Disease Active 2020-02 U nivers 0-26 ity of 00:00: [place] 00 Medical Branch Allergies, Adverse Reactions, Alerts Allergy Allergy Status Severity Reaction(s) Onset Inactive Treating Comm ents Source Name Type Date Date Clinician NO KNOWN Drug Active Univers ALLERGIE Class ity of S [facility] Social History Social Habit Start Date Stop Date Quantity Comments Source Exposure to Not sure [facility] SARS-CoV-2 (event) Medica l Branch Tobacco use and 2020-12-16 2020-12-16 Never used [facility] [place] exposure 00:00:00 00:00:00 [facility] Sex Assigned At [birth year] [facility] 00:00:00 00:00:00 [facility] Smoking Status Start Date Stop Date Source Unknown if ever smoked [facility] [place]oker [place] [facility] Medications Ordered Filled Start Stop Current Ordering Indication Dosage Frequency Signature Comments Components Source Medication Medication Date Date Medication? Clinician (SIG) Name Name aspirin 2020-02 Yes 81mg 81 mg, Univers chewable 0-27 Oral, ity of tablet 81 14:00: DAILY, [place] mg 00 First dose Medical on Tue12/17/20 at 0900, Until Discontinu ed, Routine enoxaparin 2020-02 Yes 40mg 40 mg, Unive rs (LOVENOX) 0-27 Subcutaneo ity of [place] 14:00[place] 40 [place] 00 First dose Medical on Tue [place] 12/17/20 at 0900, Until Discontinu ed, Routine NaCl 0.9% 2020-02- No 1000mL at 999 Uni vers (NS) bolus 0-27 10-27 mL/hr, ity of infusion 13:45: 13:54 1,000 mL, Max[place] as 1,000 mL 00 :00 IV [facility] dose, On Tue12/17/20 at 0845, STAT aspirin 2020-02- No 325mg 325 mg, Unive rs tablet 325 0-26 10-26 Oral, ity of mg 23:15: 23:55 ONCE, 1 [place] 00 :00 dose, On Medical [facility] 12/16/20 at 1815, Routine ondansetron 2020-02 Yes 4mg 4 mg, Slow Univers (ZOFRAN 0-26 IV Push, ity of (PF)) 23:12: Q6HPRN, [place] injection 4 18 Starting Medi shonna mg on [facility] 12/16/20 at 1812, Until Discontinu ed, Routine, Nausea and Vomiting (N/V) acetaminoph 2020-02 Yes 650mg 650 mg, Un rishabh en 0-26 Oral, ity of (TYLENOL) 23:12: Q6HPRN, [place] tablet 650 10 Starting Medic al mg on [facility] 12/16/20 at 1812, Until Discontinu ed, Routine, Pain (scale 1-3) No known 2020-02 No Univers medications 0-26 ity of 21:17: [address] No known 2020-02 No Univers medications 0-26 ity of 21:17: [address] Vital Signs Vital Name Observation Time Observation Value Comments Source Systolic blood 2020-12-17 16:00:00 128 mm[Hg] Univer sity of [facility] Diastolic blood 2020-12-17 16:00:00 78 [facility]Hg[facility] 2020-12-17 16:00:00 36.83 Marcella [facility] Heart rate 2020-12-17 09:28:00 50 /min [facility] Respiratory rate 2020-12-17 09:28:00 19 /min [facility] Oxygen saturation in 2020-12-17 09:28:00 97 /min [facility] Arterial blood by [facility] [place] [facility] Pulse oximetry Branch Body height 2020-12-16 22:58:00 170.2 cm [facility] Body weight 2020-12-16 22:58:00 84.46 kg [facility] BMI 2020-12-16 22:58:00 29.16 kg/m2 [facility] Procedures Procedure Date / Time Performing Clinician Source Performed TROPONIN I 2020-12-17 11:43:00 Jaret Killian [facility] LIPID PANEL (73521)(TOTAL 2020-12-17 11:43:00 Jaret Killian [facility], HDL) TROPONIN I 2020-12-17 05:33:00 Jaret Killian [facility] HB ECG ROUTINE & RHYTHM 2020-12-16 23:44:44 Jaret Killian [facility] XR CHEST 1 VW 2020-12-16 20:17:48 Nando Griggs [facility] LIPASE 2020-12-16 20:11:00 Nando Griggs [facility] TROPONIN I 2020-12-16 20:11:00 Nando Griggs [facility] THYROID STIMULATING 2020-12-16 20:11:00 Jaret Killian [facility] HORMONE Medical Branch COMP. METABOLIC PANEL 2020-12-16 20:11:00 Nando Griggs [facility] ([id number]) Medical [place] CBC WITH DIFF 2020-12-16 20:11:00 Nando Griggs [facility] GLYCOSYLATED HEMOGLOBIN 2020-12-16 20:11:00 [facility] N-TERMINAL PRO-BNP 2020-12-16 20:11:00 Nando Griggs [facility] Medical [place] COVID-19 (ID NOW RAPID 2020-12-16 20:11:00 Nando Griggs [facility] TESTING) Medical Branch LAB ONLY COVID 2020-12-16 20:11:00 Nando Griggs [facility] INTERPRETATION [facility] URINE DRUG (IMMUNOASSAY) 2020-12-16 20:11:00 Nando Griggs [facility] DRUG Medical [facility] nch SCREEN W/O REFLEX HB ECG ROUTINE & RHYTHM 2020-12-16 19:52:30 Nando Griggs [facility] STRIP [facility] NOTICE OF PRIVACY 2020-12-16 19:45:49 Doctor Unassigned, [facility] PRACTICES [place] [facility] [place] CONSENT/REFUSAL FOR 2020-12-16 19:45:36 Doctor Unassjessica, [facility] DIAGNOSIS AND TREATMENT [place] [facility] Encounters Start End Encounter Admission Attending Care Care Encounter Source Date/Time Date/Time Type Type Clinicians Facility Department ID 2020-12-23 Emergency [facility] [id number] Univers 09:53:19 ity of [facility] 2020-12-25 2020-12-25 Telephone CAROL Martínez [id number] Univers 00:00:00 00:00:00 [place] PEDIATRIC [id number] [place] [id number] [facility] PRIMARY 059 Branch CARE CLINIC 2020-12-16 2020-12-17 Hospital Nando Griggs [facility] [id number] Univers 14:56:00 15:03:00 Encounter Jaret Killian [id number] ity of [id number] [place] [facility] [id number] [facility] 080 Branch 2020-12-16 2020-12-16 Orders Doctor CANDI [id number] Univers 00:00:00 00:00:00 Only Unassigned, AYLA 350.1.13.10 ity of [place] HOSPITAL 4.2.7.2.686 Maximo as [id number] [facility] 009 Branch 2020-11-05 2020-11-05 Outpatient R [facility] [id number] Univers 09:30:00 09:30:00 [id number] ity [facility] 2020-11-05 2020-11-05 Outpatient R FRANK, [facility] [id number] Univers 09:30:00 09:30:00 MAXIMO ity [facility] 2019-09-01 2019-09-01 Telephone CANDI Avelar [id number] 00:00:00 00:00:00 Ellyn AGUILA 350.1.13.10 HOSPITAL 4.2.7.2.686 [id number] 2019-09-01 2019-09-01 Telephone CANDI Avelar.[id number] Univers 00:00:00 00:00:00 Ellyn AGUILA 350.1.13.10 it y of HOSPITAL 4.2.7.2.686 [place] as [id number] [facility] 019 [place] 2019-08-29 2019-08-29 Laboratory Lab, [facility] [id number] 14:58:06 15:18:06 Only Fam Pob I Health [id number] [place] 4.2.7.2.686 Professio [id number] nal [address] 2019-08-29 2019-08-29 Laboratory Lab, [facility] Fam Pob I [facility] [id number] [facility] 14:58:06 15:18:06 Only Shama Lau [facility] [id number] ity of [place] 4.2.7.2.686 Maximo as Professio [id number] [place] [address] 2019-08-29 2019-08-29 Outpatient R CARLITA [facility] [id number] Univers 15:00:00 15:00:00 SHAMA reece [facility] Results Test Description Test Time Test Comments Results Result Comments Source Troponin I 2020-12-17 12:49:37 Test Item Value Reference Range Interpretation Comme nts TROPONIN I (test code = 0.008 ng/mL See_Comment [Au tomated message] The 1213729626) system which ge nerated this result tra nsmitted reference range : <=0.034. The reference r alexi was not used to int erpret this result as normal/abnormal . SHAYNE (test code = SHAYNE) Reference (Normal) Range (defined by the 99th percentile reference limit): <= 0.034 ng/mL Note: Cardiac troponin begins to rise 3-4 hours after the onset of ischemia. Repeat in 4-6 hours if the sample was drawn within 3-4 hours of the onset of the symptom and found normal. Diagnosis of myocardial injury is made with acute changes in cTn concentrations with at least one serial sample above the 99th percentile upper reference limit (URL), taken together with the patient's clinical presentation. Biotin has been reported to cause a negative bias, interpret results relative to patient's use of biotin. Lab Interpretation Normal (test code = 25149-4) [facility] (Total Cholesterol, Triglycerides, HDL)2020-12-17 12:39:00 Test Item Value Reference Range Interpretation Comments CHOL (test code = 53 mg/dL 120-200 L 7065668605) HDL (test code = 12 mg/dL >40 L 7522929212) HDLC RATIO (test code = See_Comment [Au tomated message] 4599231067) The system [employer] generated this result transmitted ref erence range: <=5.0. T he reference range was not used to int erpret this result as normal/abnormal . TRIG (test code = 54 mg/dL 30-170 7564451518) LDL CHOL (test code = 30 mg/dL See_Comment [Auto mated message] 09496-8) The system [employer] generated this result transmitted ref erence range: <=160. T he reference range was not used to int erpret this result as normal/abnormal . VLDL (test code = 11 mg/dL 5-60 5955344235) Lab Interpretation (test Abnormal code = 78164-6) [facility] [id number] 06:31:59 Test Item Value Reference Interpretation Comments Range TROPONIN I (test <0.012 See_Comment [Automated code = 6420927424) message] The system which generated this result transmitted reference range : <=0.034 ng/mL. The reference range was not used to interpret this result as normal/abnormal . SHAYNE (test code = Reference (Normal) SHAYNE) Range (defined by the 99th percentile reference limit): <= 0.034 ng/mL Note: Cardiac troponin begins to rise 3-4 hours after the onset of ischemia. Repeat in 4-6 hours if the sample was drawn within 3-4 hours of the onset of the symptom and found normal. Diagnosis of myocardial injury is made with acute changes in cTn concentrations with at least one serial sample above the 99th percentile upper reference limit (URL), taken together with the patient's clinical presentation. Biotin has been reported to cause a negative bias, interpret results relative to patient's use of biotin. Lab Interpretation Normal (test code = 67245-5) [facility] Hospital[facility]ulating Hormone (TSH)2020-12-17 00:27:44 Test Item Value Reference Range Interpretation Comments TSH (test code = See_Comment [Automated message] 7836136086) The system [employer] generated this result transmitted ref erence range: 0.45 - 4 .70 mIU/L. The refe rence range was not u sed to interpret this result as normal/abnor mal. Lab Interpretation (test Normal code = 49772-6) [facility] Hemoglobin (A1C)2020-12-16 23:55:58 Test Item Value Reference Range Interpretation Comments HGB A1C (test code = 5.2 % 4.0-5.7 4548-4) SHAYNE (test code = SHAYNE) Reference RangesNormal: <5.7%Prediabetes: 5.7 - 6.4%Diabetes: > 6.5% Lab Interpretation (test Normal code = 78394-3) [id number] 21:11:08 Test Item Value Reference Interpretation Comments Range TROPONIN I (test 0.004 ng/mL See_Comment [Automated code = 5341614404) message] The system which generated this result transmitted reference range : <=0.034. The reference range was not used to interpret this result as normal/abnormal . SHAYNE (test code = Reference (Normal) SHAYNE) Range (defined by the 99th percentile reference limit): <= 0.034 ng/mL Note: Cardiac troponin begins to rise 3-4 hours after the onset of ischemia. Repeat in 4-6 hours if the sample was drawn within 3-4 hours of the onset of the symptom and found normal. Diagnosis of myocardial injury is made with acute changes in cTn concentrations with at least one serial sample above the 99th percentile upper reference limit (URL), taken together with the patient's clinical presentation. Biotin has been reported to cause a negative bias, interpret results relative to patient's use of biotin. Lab Interpretation Normal (test code = 55352-8) [facility] [id number] 21:07:49 Test Item Value Reference Range Interpretation Comments NT-proBNP (test code 82 pg/mL See_Comment [Autom ated = 6566746515) message] The system which generated this result transmitted reference range : <=125. The reference range was not used to interpret this result as normal/abnormal . SHAYNE (test code = SHAYNE) Biotin has been reported to cause a negative bias, interpret results relative to patient's use of biotin. Lab Interpretation Normal (test code = 56663-9) [facility]OLIC PANEL (32943)2020-12-16 20:59:26 Test Item Value Reference Range Interpretation Comments NA (test code = 138 mmol/L 135-145 0255122543) K (test code = 3.9 mmol/L 3.5-5.0 5701705350) CL (test code = 105 mmol/L 98-108 7710494833) CO2 TOTAL (test code 27 mmol/L 23-31 = 7519164509) AGAP (test code = 2-16 5268143330) BUN (test code = 11 mg/dL 7-23 0669204308) GLUCOSE (test code = 105 mg/dL 70-110 6878050553) CREATININE (test code 0.99 mg/dL 0.60-1.25 = 8057719898) TOTAL BILI (test code 0.5 mg/dL 0.1-1.1 = 7636728548) CALCIUM (test code = 9.3 mg/dL 8.6-10.6 9919344282) T PROTEIN (test code 6.8 g/dL 6.3-8.2 = 6873614919) ALBUMIN (test code = 4.3 g/dL 3.5-5.0 2267544694) ALK PHOS (test code = 59 U/L 34-122 4077279271) ALTv (test code = 20 U/L 5-50 1742-6) AST(SGOT) (test code 25 U/L 13-40 = 7240620826) eGFR (test code = mL/min/1.73m2 6999891528) SHAYNE (test code = SHAYNE) Association of Glomerular Filtration Rate (GFR) and Staging of Kidney Disease* + + +- +| GFR (mL/min/1.73 m2) ?| With Kidney Damage ?| ?Without Kidney Damage+ ------+ ----+ ------+| ?>90 ?| ?Stage one ?| ? Normal ?+ -+ + -+| ?60-89 ?| ?Stage two ?| ? Decreased GFR ? + + +- +| ?30-59 ?| ?Stage three ?| ? Stage three ? + + +- +| ?15-29 ?| ?Stage four ? | ? Stage four ?+ -+ + -+| ?<15 (or dialysis) ? ?| ?Stage five ? | ? Stage five ?+ -+ + -+ *Each stage assumes the associated GFR level has been in effect for at least three months. ?Stages 1 to 5, with or without kidney disease, indicate chronic kidney disease. Notes: Determination of stages one and two (with eGFR >59mL/min/1.73 m2) requires estimation of kidney damage for at least three months as defined by structural or functional abnormalities of the kidney, manifested by either:Pathological abnormalities or Markers of kidney damage (including abnormalities in the composition of the blood or urine or abnormalities in imaging tests). [facility] 20:59:06 Test Item Value Reference Range Interpretation Comments LIPASE (test code = 9199423799) 97 U/L 0-220 Lab Interpretation (test code = Normal 97622-0) [facility] WITH [id number] 20:40:20 Test Item Value Reference Range Interpretation Comments WBC (test code = See_Comment [Automated message] 6690-2) The system [employer] generated this result transmitted ref erence range: 4.20 - 1 0.70 10*3/?L. The re ference range was not u sed to interpret this result as normal/abnor mal. RBC (test code = See_Comment [Automated message] 659-8) The system [employer] generated this result transmitted ref erence range: 4.26 - 5 .52 10*6/?L. The re ference range was not u sed to interpret this result as normal/abnor mal. HGB (test code = 14.6 g/dL 12.2-16.4 718-7) HCT (test code = 43.1 % 38.4-49.3 4544-3) MCV (test code = 86.5 fL 81.7-95.6 787-2) MCH (test code = 29.3 pg 26.1-32.7 785-6) MCHC (test code = 33.9 g/dL 31.2-35.0 786-4) RDW-SD (test code 38.7 fL 38.5-51.6 = 21937-6) RDW-CV (test code 12.2 % 12.1-15.4 = 788-0) PLT (test code = See_Comment [Automated message] 987-3) The system [employer] generated this result transmitted ref erence range: 150 - 32 8 10*3/?L. The re ference range was not u sed to interpret this result as normal/abnor mal. MPV (test code = 11.1 fL 9.8-13.0 37313-1) NRBC/100 WBC (test See_Comment [Automat ed message] code = 6453743160) The [employer] which generated this result transmitted ref erence range: 0.0 - 10 .0 /100 WBCs. The refer ence range was not u sed to interpret this result as normal/abnor mal. NRBC x10^3 (test <0.01 See_Comment [Automated message] code = 9764197351) The syste m which generated this result transmitted ref erence range: 10*3/?L. The reference range was not used to interpr et this result as normal/abnormal . GRAN MAT (NEUT) % 57.7 % (test code = 770-8) IMM GRAN % (test 0.50 % code = 4388522101) LYMPH % (test code 29.5 % = 736-9) MONO % (test code 6.5 % = 5905-5) EOS % (test code = 5.3 % 713-8) BASO % (test code 0.5 % = 706-2) GRAN MAT 3.84 10*3/uL 1.99-6.95 x10^3(ANC) (test code = 7810930514) IMM GRAN x10^3 0.03 10*3/uL 0.00-0.06 (test code = 6570354923) LYMPH x10^3 (test 1.96 10*3/uL 1.09-3.23 code = 731-0) MONO x10^3 (test 0.43 10*3/uL 0.36-1.02 code = 742-7) EOS x10^3 (test 0.35 10*3/uL 0.06-0.53 code = 711-2) BASO x10^3 (test 0.03 10*3/uL 0.01-0.09 code = 704-7) [facility]"
[2021-08-03] MEDS ORDERED: ONDANSETRON 4 MG/2 ML VIAL ONE (10:11)
[2021-08-03] MEDS ORDERED: NA CHLORIDE 0.9% 1,000 ML ONE (10:11)
[2021-08-03 10:12] LABS: Absolute Lymphocytes (CBC) 1.2 K/uL (0.7-4.9); Hematocrit 42.8 % (39.6-49.0); Lymphocytes % 27.4 % (15.3-44.8); MPV 8.7 fL (7.6-11.3); RBC Red Blood Cell Count 5.07 M/uL (4.33-5.43)
[2021-08-03 10:36] LABS: Bilirubin Total 0.5 mg/dL (0.2-1.0); Potassium 4.2 mmol/L (3.5-5.1); Protein, Total 7.7 g/dL (6.4-8.2)
--- NOTE | 2021-08-03 11:29 | RAD REPORT ---
EXAM DESCRIPTION: CT - Abdomen Pelvis W Contrast - 08/03/2021 11:13 am CLINICAL HISTORY: Abdominal pain COMPARISON: none. TECHNIQUE: Computed axial tomography of the abdomen pelvis was obtained. 100 cc Isovue-300 was admin istered intravenously. Oral contrast was not requested which limits evaluation of bowel and appendix All CT scans are performed using dose optimization technique as appropriate and may include automated exposure control or mA/KV adjustment according to patient size. FINDINGS: The liver, spleen, pancreas, adrenal and kidneys appear unremarkable. There is no evidence of diverticulitis. Normal appendix Mild ground-glass opacities left lower lobe IMPRESSION: Mild ground-glass opacity left lower lobe nonspecific No acute abnormality involving the abdomen/pelvis
--- NOTE | 2021-08-03 11:42 | ER ---
Nurse's Notes [facility] Name: Gurwinder Garner Age: 30 yrs Sex: Male : 1990 Arrival Date: 08/03/2021 Time: 09:17 Bed 13 Private MD: Diagnosis: Lower abdominal pain, unspecified;Vomiting, unspecified Presentation: 08/03 09:35 Ebola Screen: Patient denies travel to an Ebola-affected area in the 21 days before [facility] illness onset. Risk Assessment: Do you want to hurt yourself or someone else? Patient reports no desire to harm self or others. 09:35 Acuity: ALIRIO 3 ll1 09:35 Method Of Arrival: Ambulatory [facility] 09:40 Chief complaint: Patient states: Abd pain with N/V/D started 8 am. Sent in by work. 1 Coronavirus screen: Vaccine status: Patient reports receiving the 1st dose of the Covid vaccine. Client denies travel out of the [place] in the last 14 days. diarrhea, nausea, vomiting. Client presents with at least one sign or symptom that may indicate coronavirus-19. Standard/surgical mask placed on the client. 09:41 Initial Sepsis Screen: Does the patient meet any 2 criteria? No. Patient's initial [facility] sepsis screen is negative. Does the patient have a suspected source of infection? Yes: Acute abdominal pain. 12:01 Onset of symptoms was August 03, 2021. [facility] Triage Assessment: 09:36 General: Appears in no apparent distress. Behavior is calm, cooperative, appropriate ll1 for age. Pain: Complains of pain in left lower quadrant Pain currently is 8 out of 10 on a pain scale. Quality of pain is described as aching, crampy. Neuro: No deficits noted. Cardiovascular: No deficits noted. GI: Reports lower abdominal pain, upper abdominal pain, cramping, diarrhea, nausea, vomiting. 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 - Social history:: Smoking status: Patient denies any tobacco usage or history of. - Family history:: not pertinent. - Hospitalizations: : No recent hospitalization is reported. Screenin:00 Abuse screen: Denies threats or abuse. Nutritional screening: No deficits noted. ll1 Tuberculosis screening: No symptoms or risk factors identified. Fall Risk IV access (20 points). Total Magana Fall Scale indicates No Risk (0-24 pts). Assessment: 09:40 GI: Bowel sounds present X 4 quads. Abd is soft and non tender X 4 quads. ll1 10:35 Reassessment: No changes from previously documented assessment. Patient and/or family ll1 updated on plan of care and expected duration. Pain level reassessed. Patient is alert, oriented x 3, equal unlabored respirations, skin warm/dry/pink. 11:35 Reassessment: No changes from previously documented assessment. Patient and/or family ll1 updated on plan of care and expected duration. Pain level reassessed. Patient is alert, oriented x 3, equal unlabored respirations, skin warm/dry/pink. Patient states feeling better. Vital Signs: 09:41 BP 135 / 89; Pulse 93; Resp 16; Temp 97.6; Pulse Ox 96% on R/A; Weight 81.65 kg; Height ll1 5 ft. 7 in. (170.18 cm); Pain 8/10; 11:40 BP 125 / 86; Pulse 65; Resp 15; Pulse Ox 97% ; Pain 0/10; ll1 09:41 Body Mass Index 28.19 (81.65 kg, 170.18 cm) ll1 ED Course: 09:17 Patient arrived in ED. mr 09:23 Parish Bowden MD is Attending Physician. rn 09:35 Jose Eduardo Landin RN is Primary Nurse. ll1 09:35 Triage completed. ll1 09:35 Arm band placed on Patient placed in an exam room, on a stretcher. ll1 10:01 Initial lab(s) drawn, by nh, sent to lab. Inserted saline lock: 20 gauge in right mb4 antecubital area, using aseptic technique. Blood collected. 11:15 CT Abd/Pelvis - IV Contrast Only In Process Unspecified. EDMS 11:41 No provider procedures requiring assistance completed. IV discontinued, intact, ll1 bleeding controlled, No redness/swelling at site. Pressure dressing applied. 12:00 Patient has correct armband on for positive identification. Call light in reach. Side ll1 rails up X 1. Pulse ox on. NIBP on. Administered Medications: 10:15 Drug: NS 0.9% 1000 ml Route: IV; Rate: 1 bolus; Site: right antecubital; 1 11:59 Follow up: Response: No adverse reaction; IV Status: Completed infusion; IV Intake: ll1 1000ml 10:15 Drug: Zofran (Ondansetron) 4 mg Route: IVP; Site: right antecubital; ll1 11:59 Follow up: Response: No adverse reaction; Nausea is decreased ll1 Medication: 12:00 VIS not applicable for this client. ll1 Intake: 11:59 IV: 1000ml; Total: 1000ml. 1 Outcome: 11:41 Discharge ordered by . rn 11:41 Discharged to home ambulatory. [facility] 11:41 Condition: stable 11:41 Discharge instructions given to patient, Instructed on discharge instructions, follow up and referral plans. medication usage, Demonstrated understanding of instructions, follow-up care, medications, Prescriptions given X 1. 12:01 Patient left the ED. 1 Signatures: Dispatcher [employer] Chastity Piedra Roman, MD MD rn Baxter, Mackenzie mb4 Jose Eduardo Lanidn RN RN ll1
--- NOTE | 2021-08-03 11:42 | EDPHYS ---
Physician Documentation [facility] Name: Gurwinder Garner Age: 30 yrs Sex: Male : 1990 Arrival Date: 08/03/2021 Time: 09:17 Bed 13 Private MD: ED Physician Parish Bowden HPI: 08/03 11:38 This 30 yrs old Male presents to ER via Ambulatory with complaints of Abdominal Pain, rn Nausea/Vomiting. 11:38 The patient presents to the emergency department with nausea, vomiting, diarrhea, rn abdominal pain, of the left lower quadrant. Onset: The symptoms/episode began/occurred this morning. Possible causes: unknown. The symptoms are aggravated by nothing. The symptoms are alleviated by nothing. Associated signs and symptoms: Pertinent positives: abdominal pain, diarrhea, nausea, vomiting, Pertinent negatives: anorexia, fever, GI bleeding. Severity of symptoms: At their worst the symptoms were moderate in the emergency department the symptoms have improved. The patient has not experienced similar symptoms in the past. The patient has not recently seen a physician. 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 - Social history:: Smoking status: Patient denies any tobacco usage or history of. - Family history:: not pertinent. - Hospitalizations: : No recent hospitalization is reported. ROS: 11:38 Constitutional: Negative for fever, chills, and weight loss, Eyes: Negative for injury, rn pain, redness, and discharge, Neck: Negative for injury, pain, and swelling, Cardiovascular: Negative for chest pain, palpitations, and edema, Respiratory: Negative for shortness of breath, cough, wheezing, and pleuritic chest pain, Abdomen/GI: + LLQ abd pain and nausea/vomiting/diarrhea Back: Negative for injury and pain, MS/Extremity: Negative for injury and deformity, Skin: Negative for injury, rash, and discoloration, Neuro: Negative for headache, weakness, numbness, tingling, and seizure. Exam: 11:38 Constitutional: This is a well developed, well nourished patient who is awake, alert, rn and in no acute distress. Head/Face: Normocephalic, atraumatic. Eyes: Periorbital areas with no swelling, redness, or edema. Cardiovascular: Regular rate and rhythm. No pulse deficits. Respiratory: No increased work of breathing, no retractions or nasal flaring. Abdomen/GI: Soft, mild LLQ tenderness, no rebound/guarding Skin: Warm, dry MS/ Extremity: Pulses equal, no cyanosis. Neuro: Awake and alert, GCS 15 Vital Signs: 09:41 BP 135 / 89; Pulse 93; Resp 16; Temp 97.6; Pulse Ox 96% on R/A; Weight 81.65 kg; Height ll1 5 ft. 7 in. (170.18 cm); Pain 8/10; 11:40 BP 125 / 86; Pulse 65; Resp 15; Pulse Ox 97% ; Pain 0/10; ll1 09:41 Body Mass Index 28.19 (81.65 kg, 170.18 cm) ll1 MDM: 09:23 Patient medically screened. rn 11:38 Differential diagnosis: Nonspecific abd pain, appendicitis, diverticulitis, viral rn gastroenteritis, gastroenteritis. Data reviewed: vital signs, nurses notes, lab test result(s), radiologic studies, CT scan, and as a result, I will discharge patient. Counseling: I had a detailed discussion with the patient and/or guardian regarding: the historical points, exam findings, and any diagnostic results supporting the discharge/admit diagnosis, lab results, radiology results, the need for outpatient follow up, to return to the emergency department if symptoms worsen or persist or if there are any questions or concerns that arise at home. Response to treatment: the patient's symptoms have mildly improved after treatment, and as a result, I will discharge patient. Special discussion: Based on the patient's Hx, exam, and Dx evaluation, there is no indication for emergent surgery or inpatient Tx. It is understood by the patient/guardian that if the Sx's persist or worsen they need to return immediately for re-evaluation. I discussed with the patient/guardian in detail that at this point there is no indication for admission to the hospital. It is understood, however, that if the symptoms persist or worsen the patient needs to return immediately for re-evaluation. 08/03 09:34 Order name: CBC with Diff; Complete Time: 10:38 rn 08/03 09:34 Order name: CMP; Complete Time: 10:38 rn 08/03 09:34 Order name: Lipase; Complete Time: 10:38 rn 08/03 09:52 Order name: CT Abd/Pelvis - IV Contrast Only; Complete Time: 11:38 rn 08/03 09:34 Order name: IV Saline Lock; Complete Time: 10:04 rn 08/03 09:34 Order name: Labs collected and sent; Complete Time: 10:04 rn Administered Medications: 10:15 Drug: NS 0.9% 1000 ml Route: IV; Rate: 1 bolus; Site: right antecubital; ll1 11:59 Follow up: Response: No adverse reaction; IV Status: Completed infusion; IV Intake: ll1 1000ml 10:15 Drug: Zofran (Ondansetron) 4 mg Route: IVP; Site: right antecubital; ll1 11:59 Follow up: Response: No adverse reaction; Nausea is decreased ll1 Disposition Summary: 08/03/21 11:41 Discharge Ordered Location: Home rn Problem: new rn Symptoms: have improved rn Condition: Stable rn Diagnosis - Lower abdominal pain, unspecified rn - Vomiting, unspecified rn Followup: rn - With: Private Physician - When: As needed - Reason: Recheck today's complaints, Re-evaluation by your physician Discharge Instructions: - Abdominal Pain, Adult rn - Nausea and Vomiting, Adult rn - Discharge Summary Sheet ll1 - Pain Without a Known Cause rn Forms: - Medication Reconciliation Form rn - Work release form ll1 - Thank You Letter rn - Antibiotic banking attorney - Prescription Opioid Use rn Prescriptions: - ondansetron 4 mg Oral tablet,disintegrating - take 1 tablet by ORAL route every 8 hours As needed; 10 tablet; Refills: 0, rn Product Selection Permitted Signatures: Dispatcher [employer] Parish Sanchez MD MD rn Lewis, Lynsay RN RN ll1
[2021-08-03 12:08] VITALS: BP 135/89; TEMP 97.6; O2SAT 96
== END 2021-08-03 12:01 | disposition home or self-care (01) ==
LOC: ER 09:15
DX: R10.30 Lower abdominal pain, unspecified (principal)
CPT/HCPCS: 36415; 74177; 80053; 83690; 85025; 96361; 96374; 99284; J2405; J7030; Q9967